=== PATIENT | male | born 1950 | race Caucasian/White ===

== ENCOUNTER 2022-10-02 13:31 | Outpatient (AMB) | payer OTHER, SELFPAY ==
[2022-10-02 13:34] VITALS: BP 130/72; PULSE 81; TEMP 36.3; O2SAT 97; BMI 42.3
--- NOTE | 2022-10-02 13:34 | MHC.PC.OV ---
Vital Signs 10/02/22 13:34 Height 5 ft 7 in Weight 270 lb BMI 42.3 BP 130/72 Blood Pressure Location Lt brachial Position Sitting Pulse 81 Pulse Source Pulse Oximeter Temp 97.4 F Temp Source Oral Pulse Oximetry (%) 97 Intake Visit Reasons: Sore throat Intake Note: Patient is here with stomach acid discomfort in esophagus and chest. Allergies No Known Allergies Allergy (Verified 10/02/22 13:41) Tobacco use date assessed: 10/02/22 Fall risk assessment: No Falls in past year Last assessed Fall Risk: 10/02/22 Dental Screening Dental Screen Date: 10/02/22 Did you have a dental visit in the last 12 months?: Yes Did you have a dental problem in the last 6 months where you did not have access to dental care?: No Was dental information given to patient?: No HPI Sore throat HPI Details Pt presents today with complaints of chest discomfort. He reports chest discomfort which he describes as a stomach acid discomfort in his esophagus and chest. He denies any shortness of breath/dizziness associated with the chest discomfort. He reports symptoms x3 weeks. He reports he has been taking omeprazole 20mg daily. He reports when he takes tums it does not improve his symptoms. [facility] Medical History (Updated 10/02/22 @ 14:14 by Dino Marinelli) Arthritis Back disorder Diabetes Eczema GERD (gastroesophageal reflux disease) Neuropathy Osteoporosis Sinusitis Social History Housing: House Patient Tobacco Use Status: Never used Tobacco e-Cigarette/Vaping Use: Never Used service: Yes Current occupational status: retired Cognitive needs: No Hearing needs: No Vision needs: Yes Questionnaire PHQ-9 Over the last 2 weeks, how often have you been bothered by any of the following problems? 1. Little interest or pleasure in doing things: not at all 2. Feeling down, depressed, or hopeless: not at all 3. Trouble falling or staying asleep, or sleeping too much: not at all 4. Feeling tired or having little energy: not at all 5. Poor appetite or overeating: not at all 6. Feeling bad about yourself - or that you are a failure or have let yourself or your family down: not at all 7. Trouble concentrating on things, such as reading the newspaper or watching television: not at all 8. Moving or speaking so slowly that other people could have noticed. Or the opposite - being so fidgety or restless that you have been moving around a lot more than usual: not at all 9. Thoughts that you would be better off or of hurting yourself in some way: not at all Total score: 0 Source: Developed by Drs. Tariq Casey, Annika Cabral, Jigar Hill and colleagues, with an educational alfonso from [employer]. Thrive Questionnaire I am a: Patient What is your living situation today?: I have a steady place to live Within the past 12 months, did the food you bought not last and you didn't have the money to get more?: Never true Within the past 12 months, did you worry whether your food would run out before you got money to buy more?: Never true Do you have trouble paying for medicines?: No Do you have trouble getting transportation to medical appointments?: No Do you have trouble paying your heating and electricity bill?: No Do you have trouble taking care of your child, family member or friend?: No Do you have trouble with day-to-day activities such as bathing, preparing meals, shopping, managing finances, etc.?: No Are you currently unemployed and looking for a job?: No Are you interested in more education?: Yes AUDIT C Alcohol Use Questionnaire (AUDIT-C) 1. How often do you have a drink containing alcohol?: Monthly or less 2. How many drinks containing alcohol do you have on a typical day when you are drinking?: 1 or 2 3. How often do you have six or more drinks on one occasion?: Never Total Score: 1 PATIENCE-7 AMB Questionnaire PATIENCE-7 Date PATIENCE - 7 assessed: 05/21/22 Feeling nervous, anxious, or on edge: 0 = Not at all Not being able to stop or control worryin = Not at all Worrying too much about different things: 0 = Not at all Trouble relaxin = Not at all Being so restless that it is hard to sit still: 0 = Not at all Becoming easily annoyed or irritable: 0 = Not at all Feeling afraid as if something awful might happen: 0 = Not at all Total PATIENCE-7 score (0-4 normal; 5-9 mild; 10-14 moderate; 15-21 severe): 0 Source: Developed by Drs. Tariq Casey, Annika Cabral, Jigar Hill and colleagues, with an educational alfonso from [employer]. Review of Systems Const Denies chills, Denies fatigue, Denies fever(s), Denies headache(s) and Denies weakness ENT Denies dizziness and Denies headache(s) Card Denies chest pain, Denies lightheadedness, Denies dyspnea and Denies other (Palpitations) Resp Denies cough, Denies dyspnea, Denies wheezing and Denies other ( shortness of breath) Musc Denies numbness and Denies tingling Neuro Denies dizziness, Denies headache(s), Denies numbness, Denies tingling, Denies paresthesias and Denies weakness Psych Denies anxiety and Denies depression Endo Denies fatigue Aller/Immun Denies wheezing Physical exam (Primary Care) Vital Signs: Last Vital Signs Temp 97.4 F 10/02/22 13:34 Pulse 81 10/02/22 13:34 BP 130/72 10/02/22 13:34 Pulse Ox 97 10/02/22 13:34 BMI result Body Mass Index 42.3 Tobacco/Smoking Status: Tobacco use Status Tobacco use date assessed 10/02/22 10/02/22 13:45 Patient Tobacco Use Status Never used Tobacco 10/02/22 13:45 e-Cigarette/Vaping Use Never Used 10/02/22 13:45 PHQ-9: PHQ-9 Score PHQ-9: Total score 0 10/04/22 20:58 Const General: no acute distress and well developed Nutritional Appearance: well nourished Orientation/consciousness: patient oriented x3 [facility] Head: Yes normocephalic and Yes atraumatic Eyes General: appearance normal, both eyes and all related structures Pupils: Equal, round and reactive pupils present EOM: EOMs intact bilaterally Resp Effort & Inspection: normal respiratory effort Auscultation: clear to auscultation bilaterally Cardio Rate: regular rate Rhythm: regular rhythm Heart sounds: S1 normal heart sound present, S2 normal heart sound present, no gallops, no murmurs and no rubs Neuro General: patient oriented x3 and gait normal Cranial nerves: Yes Equal, round and reactive pupils present Psych Affect: normal affect Assessment and Plan Assessment & Plan (1) Substernal chest pain: Code(s): R07.2 - Precordial pain Plan: EKG showed normal sinus rhythm, normal axis, right bundle branch block. Some nonspecific ST changes. Patient does not want to go to the ED for workup. He will get labs including troponin level and chest x-ray, stat today. Will call him with the results No prior EKG to compare to. He denies knowing of any right bundle-branch block in the past but does say that his EKG has not been perfectly normal in the past. Denies coronary artery disease but he does have risk factors such as diabetes. (2) GERD (gastroesophageal reflux disease): Code(s): K21.9 - Gastro-esophageal reflux disease without esophagitis Plan: Increase omeprazole to 40 mg daily and I will give him some sucralfate Close follow-up; he will return next week (3) Substernal chest pain: Code(s): R07.2 - Precordial pain Plan: Patient does not want to go to the ED for this and many of his symptoms are more consistent with esophageal spasm or GERD but EKG is not normal and I do not have a prior to compare to. He will get chest x-ray and labs drawn today. If troponin is negative can look for other causes. Orders: Orders Comprehensive Met. Panel 10/02/22 R07.2 - Precordial pain Complete Blood Count Auto Diff 10/02/22 R07.2 - Precordial pain, Z00.00 - Encounter for general adult medical examination without abnormal findings Troponin-I High Sensitivity 10/02/22 R07.2 - Precordial pain XR chest 2V 10/02/22 R07.2 - Precordial pain AMB EKG-In Office 10/02/22 R07.2 - Precordial pain Medications: New sucralfate 1 g PO BID 6 tabs 0RF 3 days Changed From omeprazole 20 mg PO DAILY 90 days 90 caps 3RF To omeprazole 40 mg (2 x 20 mg) PO DAILY 180 caps 3RF 90 days Coding Level of Care Code Est Pt Level 4 (35561) Diagnoses Substernal chest pain R07.2 GERD (gastroesophageal reflux disease) K21.9
== END 2022-10-02 15:08 | disposition home or self-care (01) ==
PROVIDERS: PCP Family Medicine; Visit Provider Family Medicine
DX: R07.2 Precordial pain (principal); K21.9 Gastro-esophageal reflux disease without esophagitis
CPT/HCPCS: 99214

== ENCOUNTER 2022-10-02 15:32 | Outpatient (REF) | payer OTHER, SELFPAY ==
--- NOTE | ~2022-10-02 | XR_ITS ---
EXAMINATION: XR CHEST CLINICAL INFORMATION: Precordial pain. COMPARISON: None available. TECHNIQUE: 2 views of the chest were obtained. FINDINGS: No significant abnormality is noted involving the heart, lungs, mediastinum, bony thorax or soft tissues. XR/XR chest 2V IMPRESSION: No acute cardiopulmonary process.
[2022-10-02 15:50] LABS: MANUAL DIFF FLAG NO
[2022-10-02 17:50] LABS: Basophils Absolute Auto 0.1 X10*3/uL (0.0-0.2); Basophils Percent Auto 0.7 % (0-2); Eosinophils Absolute Auto 0.1 X10*3/uL (0.0-0.4); Eosinophils Percent Auto 0.7 % (0-4); Hematocrit 45.2 % (42.0-52.0); Imm Gran Abs Auto 0.04 X10*3/uL (0.00-0.03); Imm Gran Pct Auto 0.3 % (0.0-0.4); Lymphocytes Absolute Auto 2.3 X10*3/uL (1.2-4.9); Lymphocytes Percent Auto 19.7 % (20-40); Mean Corpuscular Hemoglobin 26.2 pg (27.0-33.0); Mean Corpuscular Volume 84.6 fL (80.0-98.0); Mean Platelet Volume 11.5 fL (9.4-12.4); Monocytes Absolute Auto 1.1 X10*3/uL (0.1-1.2); Monocytes Percent Auto 8.9 % (2-11); Neutrophils Absolute Auto 8.2 x10*3/uL (2.0-8.3); Neutrophils Percent Auto 69.7 % (45-73); Platelet Count 254 X10*3/uL (160-400); Red Blood Count 5.34 X10*6/uL (4.60-5.80); Red Cell Distribution Width 14.6 % (11.0-16.0); White Blood Count 11.8 X10*3/uL (4.8-10.8)
[2022-10-02 18:16] LABS: Alanine Aminotransferase 19 U/L (0-40); Albumin Level 4.3 g/dL (3.5-5.0); Alkaline Phosphatase 89 U/L (39-117); Anion Gap 17 (12-20); Aspartate Amino Transferase 17 U/L (5-37); Bilirubin Total 0.3 mg/dL (0.0-1.0); Blood Urea Nitrogen 16 mg/dL (9-16); Calcium 9.8 mg/dL (8.4-10.2); Carbon Dioxide 25 mmol/L (22-29); Chloride 105 mmol/L (96-108); Estimated Glomerular Filt Rate > 60; Glucose Random 75 mg/dL (60-115); Potassium 4.1 mmol/L (3.3-5.1); Sodium 143 mmol/L (135-145); Total Protein 7.6 g/dL (6.5-8.0)
[2022-10-02 18:18] LABS: Troponin-I High Sensitivity < 2.7 ng/L (<3.5-35.0)
== END 2022-10-02 15:33 | disposition home or self-care (01) ==
LOC: HO.LAB 15:32
PROVIDERS: PCP Family Medicine; Visit Provider Family Medicine
DX: Z00.00 Encounter for general adult medical examination without abnormal findings (principal); R07.2 Precordial pain
CPT/HCPCS: 36415; 71046; 80053; 84484; 85025

== ENCOUNTER 2022-10-08 09:27 | Outpatient (AMB) | payer OTHER, SELFPAY ==
--- NOTE | 2022-10-08 09:31 | A.OFFPC_ITS ---
Vital Signs 10/08/22 09:33 Height 5 ft 7 in Weight 268 lb BMI 42.0 BP 138/76 Blood Pressure Location Lt brachial Position Sitting Pulse 75 Pulse Source Pulse Oximeter Pulse Oximetry (%) 97 Oxygen Delivery Method Room Air Intake Visit Reasons: f/u chest pain Intake Note: Patient is here to follow up on chest pain, he states he is feeling so-so today. Allergies No Known Allergies Allergy (Verified 10/08/22 09:35) Tobacco use date assessed: 10/08/22 Fall risk assessment: No Falls in past year Last assessed Fall Risk: 10/08/22 Dental Screening Dental Screen Date: 10/08/22 Did you have a dental visit in the last 12 months?: Yes Did you have a dental problem in the last 6 months where you did not have access to dental care?: No Was dental information given to patient?: No [facility] Medical History Arthritis Back disorder Diabetes Eczema GERD (gastroesophageal reflux disease) Neuropathy Osteoporosis Sinusitis Social History Housing: House Patient Tobacco Use Status: Never used Tobacco e-Cigarette/Vaping Use: Never Used service: Yes Current occupational status: retired Cognitive needs: No Hearing needs: No Vision needs: Yes Questionnaire PATIENCE-7 AMB Questionnaire PATIENCE-7 Date PATIENCE - 7 assessed: 05/21/22 Source: Developed by Drs. Tariq Casey, Annika Cabral, Jigar Hill and colleagues, with an educational alfonso from [employer]. Physical exam (Primary Care) Vital Signs: Last Vital Signs Pulse 75 10/08/22 09:33 BP 138/76 10/08/22 09:33 Pulse Ox 97 10/08/22 09:33 Oxygen Delivery Method Room Air 10/08/22 09:33 BMI result Body Mass Index 42.0 Tobacco/Smoking Status: Tobacco use Status Tobacco use date assessed 10/08/22 10/08/22 09:39 Patient Tobacco Use Status Never used Tobacco 10/08/22 09:33 e-Cigarette/Vaping Use Never Used 10/08/22 09:33 Assessment and Plan Assessment & Plan (1) Chest discomfort: Code(s): R07.89 - Other chest pain Plan: Focal chest discomfort which does not radiate and is not so she had with exertion. He did have an EKG with a right bundle branch block but no signs of ACS and his troponin level was negative Possibly some improvements with PPI increase dose and sucralfate though patient still has symptom. Also not associated with deep inspiration and his chest x-ray was negative. Patient also notes some dizziness but this does not seem to be associated with the chest discomfort. Most likely his focal chest discomfort is related to his GI tract such as an esophageal spasm or erosion. Will refer him to Gastroenterology for further evaluation Nevertheless, will refer him to Cardiology as well. He has had a associate account executive in the past and prior records from 2010 show history of atrial flutter and pericardial effusion though no evidence of either of these currently. (2) GERD (gastroesophageal reflux disease): Code(s): K21.9 - Gastro-esophageal reflux disease without esophagitis Plan: For now, continue omeprazole at 40 mg daily Referred to GI (3) Dizziness: Code(s): R42 - Dizziness and giddiness Plan: As above, patient notes some dizziness which does not seem to be related to chest discomfort and is likely related to vertigo Nevertheless, given above symptoms, I am referring him to Cardiology Orders: Referrals Cardiology Referral R07.89 - Other chest pain, R42 - Dizziness and giddiness Gastroenterology Referral K21.9 - Gastro-esophageal reflux disease without esophagitis, R07.89 - Other chest pain Coding Level of Care Code Est Pt Level 4 (40735) Diagnoses Chest discomfort R07.89 GERD (gastroesophageal reflux disease) K21.9 Dizziness R42
[2022-10-08 09:33] VITALS: BP 138/76; PULSE 75; O2SAT 97; BMI 42.0
== END 2022-10-08 10:14 | disposition home or self-care (01) ==
PROVIDERS: PCP Family Medicine; Visit Provider Family Medicine
DX: R07.89 Other chest pain (principal); K21.9 Gastro-esophageal reflux disease without esophagitis; R42 Dizziness and giddiness
CPT/HCPCS: 99214

== ENCOUNTER 2022-10-21 13:24 | Outpatient (AMB) | payer OTHER, SELFPAY ==
[2022-10-21 13:27] VITALS: BP 140/75; PULSE 74; O2SAT 96; BMI 41.3
--- NOTE | 2022-10-21 13:27 | A.OFFVIS_ITS ---
Intake Vital Signs 10/21/22 13:27 Height 5 ft 7 in Weight 263 lb 10.766 oz BMI 41.3 BP 140/75 H Blood Pressure Location Lt brachial Position Sitting Pulse 74 Pulse Source Pulse Oximeter Pulse Oximetry (%) 96 Oxygen Delivery Method Room Air Intake Visit Reasons: Gastro-esophageal reflux disease Intake Note: Pt presents to the office today for Gastro-esophageal reflux disease. Pt states he hasnt had any issues with GERD except he feels like he has a lump in his throat/chest area that is painful. He states today he has less pain but it is still there. Pt denies any NVD. Allergies No Known Allergies Allergy (Verified 10/21/22 13:33) HPI HPI Comments History of Present Illness Details This is a 72 y.o M with PMH of who is here for chest discomfort. Pt reports that sx started in August which he describes as a pressure or lump like sensation in his upper chest that had sudden onset one day. Characterizes it as pressure which is present all the time. Does not think it gets worse with exertion. Has been avoiding certain foods such as fatty or spicy foods and thinks that may have made some difference. Not sure if omeprazole is making it better despite increase in dose to 40. Not associated with N,V,D. Does notice some shortness of breath on exertion and has also been experiencing lightheadedness and dizziness. EKG done in PCP office (not available to review) reportedly with a new RBBB. [facility] Medical History Arthritis Back disorder Diabetes Eczema GERD (gastroesophageal reflux disease) Neuropathy Osteoporosis Sinusitis Surgical History History of tonsillectomy Social History Housing: House Patient Tobacco Use Status: Never used Tobacco e-Cigarette/Vaping Use: Never Used service: Yes Current occupational status: retired Cognitive needs: No Hearing needs: No Vision needs: Yes Physical Exam Vital Signs: Last Vital Signs Pulse 74 10/21/22 13:27 BP 140/75 H 10/21/22 13:27 Pulse Ox 96 10/21/22 13:27 Oxygen Delivery Method Room Air 10/21/22 13:27 BMI result Body Mass Index 41.3 Assessment & Plan Assessment & Plan (1) Substernal chest pain: Code(s): R07.2 - Precordial pain (2) Globus sensation: Code(s): R09.89 - Other specified symptoms and signs involving the circulatory and respiratory systems Plan Features not entirely convincing for esophageal or gastrointestinal origin of chest discomfort michael given location and other assoc sx such as SOB and lightheadedness. Do not sound completely anginal either. However certainly should undergo eval and already scheduled with Cardiology. Will try to expedite this and also obtain an echocardiogram. From GI standpoint, possible DDx include esophageal dysmotilty, diverticulum, globus sensation, mass. Barium swallow ordered. Holding off EGD until cardiology evaluation. Cont omperazole 40 in the meantime. Follow up in 4 weeks Orders: Orders [place] barium swallow Today R09.89 - Other specified symptoms and signs involving the circulatory and respiratory systems CA echo transthoracic complete Today R07.2 - Precordial pain Coding Level of Care Code New Pt Level 4 (37305) Diagnoses Substernal chest pain R07.2 Globus sensation R09.89
== END 2022-10-21 14:21 | disposition home or self-care (01) ==
PROVIDERS: PCP Family Medicine; Visit Provider Internal Medicine
DX: R07.2 Precordial pain (principal); R09.89 Other specified symptoms and signs involving the circulatory and respiratory systems
CPT/HCPCS: 99204

== ENCOUNTER → 2022-10-21 13:24 | Outpatient (BNVA) | payer OTHER, SELFPAY | PROVIDERS: PCP Family Medicine; Visit Provider Internal Medicine ==

== ENCOUNTER 2022-10-26 12:18 | Outpatient (AMB) | payer OTHER, SELFPAY ==
--- NOTE | 2022-10-26 12:33 | A.OFFVIS_ITS ---
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 He is a 72-year-old male with prior history of diabetes but diet controlled for many years as well as neuropathy, he says diagnosed in 2011 currently not on medical therapy for the same. He thinks this is related to diabetes. Five for about 6 weeks he has had a constant retrosternal lump in place. He said this is not clearly exertion related. Denies any other symptoms. However he does complain of exertional shortness of breath and says they can walk for about 5 minutes on the treadmill and has to stop. However he thinks this is related to his weight and sedentary lifestyle. He recently started exercising. He also has had acid recess for many years and is currently on omeprazole and was seen through your office and currently undergoing GI workup as well. He denies any orthopnea, PND, leg edema. Denies any prolonged palpitations or syncope. He also complains that when he wakes up in the morning he gets lightheaded when he changes and gets upright. He occasional also gets symptoms when he gets up suddenly. He has not had any syncopal episodes. He drinks about 30 oz of water a day [facility] Medical History Arthritis Back disorder Diabetes Eczema GERD (gastroesophageal reflux disease) Neuropathy Osteoporosis Sinusitis Surgical History History of tonsillectomy Social History Housing: House Alcohol intake: current Alcohol intake frequency: a few times a week Patient Tobacco Use Status: Never used Tobacco e-Cigarette/Vaping Use: Never Used service: Yes Current occupational status: retired Cognitive needs: No Hearing needs: No Vision needs: Yes Review of Systems Const Denies chills, Denies daytime sleepiness, Denies fatigue, Denies fever(s), Denies frequent falls, Denies night sweats, Denies snoring, Denies weakness, Denies weight gain and Denies weight loss Eyes Denies loss of vision ENT Denies dizziness and Denies hearing loss Card Denies chest pain, Denies chest pain with activity, Denies syncope, Denies rapid heart rate, Denies edema, Denies claudication, Denies leg edema, Denies lightheadedness, Denies palpitations, Denies dyspnea, Denies dyspnea on exertion and Denies orthopnea Resp Denies cough, Denies excessive phlegm production, Denies dyspnea, Denies dyspnea on exertion, Denies snoring and Denies wheezing GI Denies abdominal pain, Denies hematochezia, Denies change in bowel habits, Denies change in stool character, Denies heartburn, Denies nausea and Denies vomiting Denies hematuria, Denies dysuria and Denies urinary frequency Musc Denies arthralgias, Denies muscle weakness, Denies numbness and Denies tingling Skin/Breast Denies nail changes and Denies rash Neuro Denies Abnormal speech present, Denies dizziness, Denies syncope, Denies frequent falls, Denies loss of vision, Denies memory loss, Denies numbness, Denies tingling and Denies weakness Psych Denies depression and Denies memory loss Endo Denies fatigue and Denies palpitations Aller/Immun Denies wheezing Physical Exam Vital Signs: Last Vital Signs Pulse 71 10/26/22 12:34 BP 132/80 10/26/22 12:34 BMI result Body Mass Index 41.1 Const General: cooperative, comfortable, no acute distress, alert and awake Nutritional Appearance: obese morbidly obese Orientation/consciousness: patient oriented x3 Limitations: no limitations HEENT Head: Yes normocephalic and Yes atraumatic Neck Neck: Yes trachea midline, Yes supple and Yes no JVD Resp Effort & Inspection: normal respiratory effort Auscultation: clear to auscultation bilaterally Cardio Jugular venous distension: no JVD Palpation: normal PMI Rate: regular rate Rhythm: regular rhythm Heart sounds: S1 normal heart sound present, S2 normal heart sound present, no click, no gallops, no murmurs and no rubs GI Inspection: Yes obesity Auscultation: normal bowel sounds Skin General skin exam: no rashes or lesions noted Neuro General: patient oriented x3 and no focal motor deficits Speech: No Abnormal speech present Extrem General: Yes no clubbing, cyanosis or edema Psych Appearance: grossly normal Assessment & Plan Assessment & Plan (1) Exertional dyspnea: Code(s): R06.09 - Other forms of dyspnea Plan: Patient with exertional shortness of breath and given his age and risk factor of diabetes, obstructive coronary artery disease needs to be ruled out. It is possible this could be related to his weight and deconditioning although obstructive coronary artery disease is going to affect his prognosis. Also suggest an echocardiogram is already requested. If these tests are within acceptable limits, in the long run he needs to pursue aggressive weight loss and regular physical activity. His symptoms of retrosternal chest discomfort a very atypical for myocardial ischemia given constant nature of discomfort for many weeks and no relation to exertion. This probably related to GI cause. Being investigated by GI team. (2) Orthostatic lightheadedness: Code(s): R42 - Dizziness and giddiness Plan: Orthostatic lightheadedness in this elderly gentleman with longstanding history of peripheral neuropathy as well as diabetes. Likelihood of autonomic neuropathy is high. We discussed the nature of autonomic neuropathy. Some of his GI symptoms are probably related to it. Management of orthostatic lightheadedness were discussed in details. Initially advised to maintain increase fluid intake to up to 60 oz a day. We discussed about orthostatic precautions. His symptoms worsen, may use alternative therapy such as midodrine and/or fludrocortisone if the blood pressure allows. Consider referral to Neuro logy for his peripheral neuropathy. Will follow up in the clinic in 6 weeks time, sooner p.r.n.. Thank you for allowing me to partake in his care Coding Level of Care Code New Pt Level 4 (38401) Diagnoses Exertional dyspnea R06.09 Orthostatic lightheadedness R42
[2022-10-26 12:34] VITALS: BP 132/80; PULSE 71; BMI 41.1
== END 2022-10-26 13:07 | disposition home or self-care (01) ==
PROVIDERS: PCP Family Medicine; Referring Provider Internal Medicine; Visit Provider Internal Medicine Cardiovascular Disease
DX: R06.09 Other forms of dyspnea (principal); R42 Dizziness and giddiness
CPT/HCPCS: 99204

== ENCOUNTER → 2022-10-26 12:18 | Outpatient (BNVA) | payer OTHER, SELFPAY | PROVIDERS: PCP Family Medicine; Referring Provider Internal Medicine; Visit Provider Internal Medicine Cardiovascular Disease ==

== ENCOUNTER → 2022-11-20 09:46 | Outpatient (REF) | payer OTHER, SELFPAY ==
--- NOTE | 2022-11-20 09:50 | CA_ITS ---
Transthoracic Echocardiogram Patient (Last, First, Middle): Farhad Mayes, Gender: Male Date of : 1950 Age: 72 Procedure Date: 11/20/2022 Procedure Type: Transthoracic Echocardiogram Location: OP Height: 170.18 cm Weight: 117.94 kg BSA: 2.26 m2 Heart Rate: bpm BP: 130 / 84 mmHg Sole Seamer: TO Referring MD: Georgina Corrigan MD Symptoms: R07.2 - Precordial pain Study Quality: Fair/Contrast Conclusions: - Normal left ventricular size, thickness, systolic function, and wall motion. The visually estimated ejection fraction is between 55-60%. Diastolic function is normal for age. - Normal right ventricular cavity size and systolic function. - There is mild dilatation of the ascending aorta measuring 3.70 cm. Findings Procedure Information Contrast agent, definity, is being given per protocol without apparent complications. Left Ventricle Normal left ventricular size, thickness, systolic function, and wall motion. The visually estimated ejection fraction is between 55-60%. Diastolic function is normal for age. Right Ventricle Normal right ventricular cavity size and systolic function. Atria The left atrium is normal in size. The right atrium is normal in size. Aortic Valve Normal aortic valve structure and function. There is no aortic valve stenosis. There is no aortic valve regurgitation. Mitral Valve The mitral valve appears normal. There is no mitral valve regurgitation. There is no mitral valve stenosis. Pulmonic Valve Normal pulmonic valve structure and function. There is no pulmonic valve regurgitation. Tricuspid Valve Normal tricuspid valve structure and function. Tricuspid regurgitation envelope is inadequate for calculation of right ventricular systolic pressure. Normal right atrial pressure. Great Vessels There is mild dilatation of the ascending aorta measuring 3.70 cm. The visualized portions of the pulmonary artery and branches are normal. Venous The inferior vena cava is normal in size and collapses greater than 50% with inspiration. Pericardium/Pleural There is no evidence of pericardial effusion. Prior Study Comparison No prior study available for comparison. Measurements 2D Linear Measurements IVSd: 0.92 0.6-0.9/0.6-1.0 cm LVIDd: 4.81 3.9-5.3/4.2-5.9 cm LVIDd Index: 2.13 2.4-3.2/2.2-3.1 cm/m2 LVIDs: 2.82 2.0-3.6 cm LVPWd: 0.77 0.7-1.1 cm LA Diam: 3.60 2.7-3.8/3.0-4.0 cm LAIDs Index: 1.59 1.5-2.3 cm/m2 LV Mass: 169.35 67-162/88-224 g LV Mass Index: 74.93 43-95/49-115 g/m2 LVOT Diam: 2.00 3.0+(-)1.3 cm 2D Systolic Function EF 4C: 60.30 >55% EF 2C: 58.60 >55% EF BiP: 59.50 >55% Mitral Valve MV VTI: 0.28 MV Pk Lee: 1.00 MV Mn Lee: 0.64 MV Pk Grad: 4.00 MV Mn Grad: 2.00 MV Pk E: 0.73 MV PK A: 0.66 MV Decel Time: 275.00 E/A: 1.10 E'Lateral: 12.20 E'Medial: 8.05 E/E' Med: 9.10 E/E' Lat: 6.00 PHT: 81.00 MVA PHT: 2.72 MVA Continuity: 2.59 Decel [place]: 2.66 Aortic Valve AoV Pk Lee: 1.38 AoV Mn Lee: 0.85 AoV VTI: 0.31 AoV Pk Grad: 8.00 Aov Mn Grad: 3.00 TOMMY Cont.VTI: 2.33 LVOT LVOT Pk Lee: 1.05 LVOT Mn Lee: 0.66 LVOT VTI: 0.23 LVOT Pk Grad: 4.00 LVOT Mn Grad: 2.00 LVOT Diam: 2.00 LVOT Area: 3.14 Diastolic Function MV Pk E: 0.73 MV Pk A: 0.66 E/A: 1.10 E'Medial: 8.05 E/E' Med: 9.10 E' Laterial: 12.20 E/E' Lat: 6.00 Right Ventricle TAPSE (mm): 22.20 TVS' Lee: 10.00 Tricuspid Valve RA Press: 3.00 Great Vessels Aorta Sinus of Valsalva: 3.33 2.0-3.[address] [place]: 2.54 1.7-3.4 cm Ao Asc: 3.70 2.1-3.4 cm Updated in Other Vendor System with Status of Final Nghia Fragoso MD electronically signed on 11/23/2022 8:57:36 AM with status of Final
== END ==
LOC: HO.CARD 09:46
PROVIDERS: PCP Family Medicine; Visit Provider Internal Medicine
DX: R07.2 Precordial pain (principal)
CPT/HCPCS: 93306; Q9957

== ENCOUNTER → 2022-11-20 09:50 | Outpatient (BNV) | payer OTHER, SELFPAY | PROVIDERS: PCP Family Medicine; Visit Provider Internal Medicine Cardiovascular Disease | DX: R07.2 Precordial pain (principal); I77.810 Thoracic aortic ectasia | CPT/HCPCS: 93306 ==

== ENCOUNTER 2022-12-08 08:55 | Outpatient (AMB) | payer OTHER, SELFPAY ==
--- NOTE | 2022-12-08 09:10 | A.OFFVIS_ITS ---
Intake Vital Signs 12/08/22 09:12 Height 5 ft 7 in Weight 253 lb 8.505 oz BMI 39.7 BP 161/88 H Blood Pressure Location Lt brachial Position Sitting Pulse 69 Intake Visit Reasons: 6 week follow up Intake Note: Farhad presents in the office as a 6 week follow up. CC: He states that he was originally having esophagus issues but he states that a week or [address] Corrigan it had gone away. He is also anxious about his test results. [employer] Required: No Allergies Seasonal Allergies Allergy (Intermediate, Verified 12/09/22 08:51) Itchy Eyes HPI HPI Comments History of Present Illness Details This is a 72 y.o M with PMH of who is here for follow up. 10/21/22: Pt reports that sx started in August which he describes as a pressure or lump like sensation in his upper chest that had sudden onset one day. Characterizes it as pressure which is present all the time. Does not think it gets worse with exertion. Has been avoiding certain foods such as fatty or spicy foods and thinks that may have made some difference. Not sure if omeprazole is making it better despite increase in dose to 40. Not associated with N,V,D. Does notice some shortness of breath on exertion and has also been experiencing lightheadedness and dizziness. EKG done in PCP office (not available to review) reportedly with a new RBBB. 12/08/22: Seen by Cardiology. Echo reviewed. Also planned for nuc stress test. Today, pt reports complete resolution of chest pain since he was last seen. Hes unsure what helped thinks may be dietary changes and/or weight loss of around 15lbs. Also canceled his barium swallow as did not think he needed it. He is also due for CRC screening. He is unsure when his last colo was. [facility] Medical History (Updated 12/09/22 @ 10:13 by Dino Marinelli) Eczema Neuropathy GERD (gastroesophageal reflux disease) Back disorder Osteoporosis Arthritis Diabetes Sinusitis Surgical History History of tonsillectomy Social History Housing: House Alcohol intake: current Alcohol intake frequency: a few times a week Patient Tobacco Use Status: Never used Tobacco e-Cigarette/Vaping Use: Never Used service: Yes Current occupational status: retired Cognitive needs: No Hearing needs: No Vision needs: Yes Review of Systems Const All systems reviewed & are unremarkable except as noted in HPI and below Physical Exam Vital Signs: Last Vital Signs Pulse 69 12/08/22 09:12 BP 161/88 H 12/08/22 09:12 BMI result Body Mass Index 39.7 Gen appear: NAD HEENT: nonicteric, no cervical lymphadenopathy Chest: CTA CVS: Regular S1/S2 Abd: soft, nontender, nondistended, bowel sounds + Ext: no peripheral edema Neuro: A/Ox3, noted to move all extremities spontaneously Psych: interacting appropriately Assessment & Plan Assessment & Plan (1) Globus sensation: Code(s): R09.89 - Other specified symptoms and signs involving the circulatory and respiratory systems (2) Substernal chest pain: Code(s): R07.2 - Precordial pain (3) Screening for colon cancer: Code(s): Z12.11 - Encounter for screening for malignant neoplasm of colon Plan 1. Globus sensation/chest pain: Self limiting. Pt unsure what made it better as hes not convinced taking PPI was helpful. Believes could just have been making dietary changes. Completing cardiac work up as above. Plan: - Discussed with the pt that if have resolved, no indication for EGD at this time however if they do recur to call us to set up an EGD (can potentially be done at the same time as screening colo) 2. CRC screening: Will be set up for screening colo on an elective basis once cardiac work up is completed. Split PEG prep instructions were reviewed and handout provided. Follow after scope(s) as needed Medications: New peg 3350-electrolytes 236-22.74-6.74 -5.86 gram (Golytely) as per split prep instructions, until fecal effluent is clear 240 mL PO Q10M 4,000 mL 0RF colonoscopy Coding Level of Care Code Est Pt Level 4 (16969) Diagnoses Globus sensation R09.89 Substernal chest pain R07.2 Screening for colon cancer Z12.11
[2022-12-08 09:12] VITALS: BP 161/88; PULSE 69; BMI 39.7
== END 2022-12-08 09:47 | disposition home or self-care (01) ==
PROVIDERS: PCP Family Medicine; Visit Provider Internal Medicine
DX: R09.89 Other specified symptoms and signs involving the circulatory and respiratory systems (principal); R07.2 Precordial pain; Z12.11 Encounter for screening for malignant neoplasm of colon
CPT/HCPCS: 99214

== ENCOUNTER → 2022-12-08 08:55 | Outpatient (BNVA) | payer OTHER, SELFPAY | PROVIDERS: PCP Family Medicine; Visit Provider Internal Medicine ==

== ENCOUNTER 2022-12-09 08:33 | Outpatient (AMB) | payer OTHER, SELFPAY ==
[2022-12-09 08:41] VITALS: BP 130/70; PULSE 72; RESP 13; TEMP 36.3; O2SAT 99; BMI 40.1
--- NOTE | 2022-12-09 08:41 | MHC.PC.OV ---
Vital Signs 12/09/22 08:41 Height 5 ft 7 in Weight 256 lb 2 oz BMI 40.1 BP 130/70 Blood Pressure Location Lt brachial Position Sitting Respiration 13 Pulse 72 Pulse Source Pulse Oximeter Temp 97.3 F Temp Source Temporal Artery Scan Pulse Oximetry (%) 99 Oxygen Delivery Method Room Air Intake Visit Reasons: CPE with f/u labs and health maint. Allergies Seasonal Allergies Allergy (Intermediate, Verified 12/09/22 08:51) Itchy Eyes Tobacco use date assessed: 10/08/22 Fall risk assessment: No Falls in past year Last assessed Fall Risk: 12/09/22 Dental Screening Dental Screen Date: 12/09/22 Did you have a dental visit in the last 12 months?: No Did you have a dental problem in the last 6 months where you did not have access to dental care?: No Was dental information given to patient?: Patient has dentist HPI CPE with f/u labs and health maint. HPI Details 72 y/o male presents for a CPE with f/u labs and health maintenance. A1c today 12/09/22 6.3% - pre-diabetes range. Had seen Dr. Saeed Cardiology for chest pain. They report symptoms of chest discomfort atypical for myocardial ischemia and most likely related to GI cause. Pt reports Dr. Saeed had given him a clean bill of health. Pt reports ongoing issues with neuropathy/leg cramps. Pt requests something for his anxiety for his flight. HPI Comments History of Present Illness Details Documentation assistance for Rogelio Marin MD, was provided by Dino Marinelli,? Fabrication [employer]der on 12/09/2022 10:02 AM FELIPA. I, Dr. Marin, have read, observed, and verified documentation. [facility] Medical History Eczema Neuropathy GERD (gastroesophageal reflux disease) Back disorder Osteoporosis Arthritis Diabetes Sinusitis Surgical History History of tonsillectomy Social History Housing: House Alcohol intake: current Alcohol intake frequency: a few times a week Patient Tobacco Use Status: Never used Tobacco e-Cigarette/Vaping Use: Never Used service: Yes Current occupational status: retired Cognitive needs: No Hearing needs: No Vision needs: Yes Questionnaire PATIENCE-7 AMB Questionnaire PATIENCE-7 Date PATIENCE - 7 assessed: 05/21/22 Source: Developed by Drs. Tariq Casey, Annika Cabral, Jigar Hill and colleagues, with an educational alfonso from [employer]. Review of Systems Const Denies chills, Denies fatigue, Denies fever(s), Denies headache(s) and Denies weakness ENT Denies dizziness and Denies headache(s) Card Denies chest pain, Denies lightheadedness, Denies dyspnea and Denies other (Palpitations) Resp Denies cough, Denies dyspnea, Denies wheezing and Denies other ( shortness of breath) Musc Denies numbness and Denies tingling Neuro Denies dizziness, Denies headache(s), Denies numbness, Denies tingling, Denies paresthesias and Denies weakness Psych Denies anxiety and Denies depression Endo Denies fatigue Aller/Immun Denies wheezing Physical exam (Primary Care) Vital Signs: Last Vital Signs Temp 97.3 F 12/09/22 08:41 Pulse 72 12/09/22 08:41 Resp 13 12/09/22 08:41 BP 130/70 12/09/22 08:41 Pulse Ox 99 12/09/22 08:41 Oxygen Delivery Method Room Air 12/09/22 08:41 BMI result Body Mass Index 40.1 Tobacco/Smoking Status: Tobacco use Status Tobacco use date assessed 10/08/22 12/09/22 08:44 Patient Tobacco Use Status Never used Tobacco 12/09/22 08:44 e-Cigarette/Vaping Use Never Used 12/09/22 08:44 Const General: no acute distress and well developed Nutritional Appearance: well nourished Orientation/consciousness: patient oriented x3 HENMT Head: Yes normocephalic and Yes atraumatic Eyes General: appearance normal, both eyes and all related structures Pupils: Equal, round and reactive pupils present EOM: EOMs intact bilaterally Resp Effort & Inspection: normal respiratory effort Auscultation: clear to auscultation bilaterally Cardio Rate: regular rate Rhythm: regular rhythm Heart sounds: S1 normal heart sound present, S2 normal heart sound present, no gallops, no murmurs and no rubs Neuro General: patient oriented x3 and gait normal Cranial nerves: Yes Equal, round and reactive pupils present Psych Affect: normal affect Results AMB Hemoglobin A1c AMB Hemoglobin A1c 6.3 % Last Edit by Loyda Anderson MA on 12/09/22 09:18 Results Reviewed Results Reviewed: Laboratory Last Values Hgb A1c (Clinic) 6.3 % (4.0-6.0) H 12/09/22 09:17 Assessment and Plan Assessment & Plan (1) Neuropathy: Code(s): G62.9 - Polyneuropathy, unspecified Plan: Tingling/burning?in?feet?and?toes. Check?B12?level Start?B12?supplement A1c?shows?blood?sugars?are?controlled Patient?is?referred?to?neurology (2) Chest discomfort: Code(s): R07.89 - Other chest pain Plan: This?has?resolved?for?several?weeks?since?increasing?omeprazole Has?seen?cardiology?and?they?feel?his?chest?pain?is?atypical?and?more?likely?related?to?GI?issues. Continue?omeprazole?40?mg?daily.??Follow-up?with?GI (3) Lower extremity pain: Code(s): M79.606 - Pain in leg, unspecified Plan: Low?back?pain?and?lower?extremity?pain Likely?recurrent?low?back?muscle?strains with?nerve?impingements?and?sciatica Start?physical?therapy (4) GERD (gastroesophageal reflux disease): Code(s): K21.9 - Gastro-esophageal reflux disease without esophagitis Plan: As?above?continue?omeprazole (5) Screening for colon cancer: Code(s): Z12.11 - Encounter for screening for malignant neoplasm of colon Plan: Patient?will?get?colonoscopy Follow-up?with?GI (6) Low back pain with sciatica: Code(s): M54.40 - Lumbago with sciatica, unspecified side Plan: As?above Start?physical?therapy If?not?improving?will?get?imaging (7) Fear of flying: Code(s): F40.243 - Fear of flying Plan: Will?give?patient?a?short?script?for?lorazepam. Orders: Orders Vitamin B12 and Folate Today E53.8 - Deficiency of other specified B group vitamins, M79.606 - Pain in leg, unspecified Comprehensive Met. Panel Today M79.606 - Pain in leg, unspecified PT Evaluation and Treatment Today M54.40 - Lumbago with sciatica, unspecified side Medications: New mecobalamin (vitamin B12) 1,000 mcg PO DAILY 90 days 90 tabs 3RF lorazepam 0.5 mg PO BID PRN 4 tabs 0RF Fear of flying 2 days M79.606 - Pain in leg, unspecified Coding Level of Care Code Est Pt Level 4 (20471) Diagnoses Neuropathy G62.9 Chest discomfort R07.89 Lower extremity pain M79.606 GERD (gastroesophageal reflux disease) K21.9 Screening for colon cancer Z12.11 Low back pain with sciatica M54.40 Fear of flying F40.243
== END 2022-12-09 10:26 | disposition home or self-care (01) ==
PROVIDERS: Visit Provider Family Medicine
DX: G62.9 Polyneuropathy, unspecified (principal); R07.89 Other chest pain; M79.606 Pain in leg, unspecified; K21.9 Gastro-esophageal reflux disease without esophagitis; Z12.11 Encounter for screening for malignant neoplasm of colon; M54.40 Lumbago with sciatica, unspecified side; F40.243 Fear of flying
CPT/HCPCS: 83036; 99214

== ENCOUNTER 2023-01-18 09:06 | Outpatient (REF) | payer OTHER, SELFPAY ==
[2023-01-18 11:22] LABS: MANUAL DIFF FLAG NO
[2023-01-18 11:41] LABS: Basophils Absolute Auto 0.1 X10*3/uL (0.0-0.2); Basophils Percent Auto 0.8 % (0-2); Eosinophils Absolute Auto 0.1 X10*3/uL (0.0-0.4); Hematocrit 44.3 % (42.0-52.0); Hemoglobin 14.4 g/dl (14.0-18.0); Imm Gran Abs Auto 0.02 X10*3/uL (0.00-0.03); Imm Gran Pct Auto 0.3 % (0.0-0.4); Lymphocytes Absolute Auto 1.7 X10*3/uL (1.2-4.9); Lymphocytes Percent Auto 23.6 % (20-40); Mean Corpuscular HGB Conc 32.5 g/dl (31.0-36.0); Mean Corpuscular Hemoglobin 27.2 pg (27.0-33.0); Mean Corpuscular Volume 83.7 fL (80.0-98.0); Mean Platelet Volume 11.7 fL (9.4-12.4); Monocytes Absolute Auto 0.7 X10*3/uL (0.1-1.2); Monocytes Percent Auto 8.9 % (2-11); Neutrophils Absolute Auto 4.8 x10*3/uL (2.0-8.3); Neutrophils Percent Auto 65.4 % (45-73); Platelet Count 258 X10*3/uL (160-400); Red Blood Count 5.29 X10*6/uL (4.60-5.80); Red Cell Distribution Width 14.5 % (11.0-16.0); White Blood Count 7.3 X10*3/uL (4.8-10.8)
[2023-01-18 11:53] LABS: Appearance Urine Clear; Color Urine Yellow; Glucose Urine UA Negative (Negative); Leukocyte Esterase Urine Negative (Negative); Nitrite Urine Negative (Negative); PH 6.5 (5.0-9.0); Specific Gravity - Urine <= 1.005 (1.005-1.025); Urine Blood Negative (Negative); Urine Ketones Negative (Negative); Urine Protein Negative (Neg-Trace)
[2023-01-18 12:07] LABS: Creatinine Urine 22.02 mg/dL; Microalbumin Urine < 5.0 mg/L
[2023-01-18 12:11] LABS: Prostate Specific Antigen Scr 2.19 ng/mL (<0.05-4.0)
[2023-01-18 12:32] LABS: TSH reflex Free T4 0.89 uIU/mL (0.32-4.0)
[2023-01-18 12:36] LABS: Anion Gap 10 (12-20)
[2023-01-18 12:41] LABS: Alanine Aminotransferase 16 U/L (0-40); Albumin Level 4.3 g/dL (3.5-5.0); Alkaline Phosphatase 78 U/L (39-117); Aspartate Amino Transferase 20 U/L (5-37); Bilirubin Total 0.7 mg/dL (0.0-1.0); Blood Urea Nitrogen 12 mg/dL (9-16); Calcium 9.7 mg/dL (8.4-10.2); Carbon Dioxide 28 mmol/L (22-29); Chloride 104 mmol/L (96-108); Cholesterol 165 mg/dL (<200); Estimated Glomerular Filt Rate > 60; Glucose Fasting 102 mg/dL (60-99); HDL Cholesterol 40 mg/dL (>40); LDL Cholesterol Calculated 110 mg/dL (<100); Potassium 4.2 mmol/L (3.3-5.1); Sodium 138 mmol/L (135-145); Total Protein 7.6 g/dL (6.5-8.0); Triglycerides 78 mg/dL (<150)
== END 2023-01-18 09:07 | disposition home or self-care (01) ==
LOC: HO.WFDLDS 09:06
PROVIDERS: Visit Provider Family Medicine
DX: Z00.00 Encounter for general adult medical examination without abnormal findings (principal); I10 Essential (primary) hypertension; Z12.5 Encounter for screening for malignant neoplasm of prostate
CPT/HCPCS: 36415; 80053; 80061; 81003; 82043; 82570; 84153; 84443; 85025

== ENCOUNTER 2023-01-20 10:36 | Outpatient (AMB) | payer OTHER, SELFPAY ==
[2023-01-20 10:40] VITALS: BP 132/78; PULSE 81; O2SAT 98; BMI 38.8
--- NOTE | 2023-01-20 10:40 | A.OFFPC_ITS ---
Vital Signs 01/20/23 10:40 Height 5 ft 7 in Weight 248 lb BMI 38.8 BP 132/78 Blood Pressure Location Rt brachial Position Sitting Pulse 81 Pulse Source Pulse Oximeter Pulse Oximetry (%) 98 Oxygen Delivery Method Room Air Intake Visit Reasons: CPE with f/u labs and health maintenance Intake Note: Patient is here for CPE with follow up on labs and health maintenance. Allergies Seasonal Allergies Allergy (Intermediate, Verified 01/20/23 10:47) Itchy Eyes Tobacco use date assessed: 10/08/22 HPI CPE with f/u labs and health maintenance HPI Details 72 y/o male presents for a CPE with f/u labs and health maintenance. Labs were drawn 01/18/23. Reviewed labs with pt. Elevated fasting glucose of 102 and last A1c 12/09/22 6.3%. Triglycerides 78. TC 165. LDL 110. HDL 40. PSA 2.19 ng/mL. Pt reports fear of flying and states he gets uncomfortable in the plane. [facility] Medical History Eczema Neuropathy GERD (gastroesophageal reflux disease) Back disorder Osteoporosis Arthritis Diabetes Sinusitis Surgical History History of tonsillectomy Housing: House Alcohol intake: current Alcohol intake frequency: a few times a week Patient Tobacco Use Status: Never used Tobacco e-Cigarette/Vaping Use: Never Used service: Yes Current occupational status: retired Cognitive needs: No Hearing needs: No Vision needs: Yes Questionnaire PATIENCE-7 AMB Questionnaire PATIENCE-7 Date PATIENCE - 7 assessed: 05/21/22 Source: Developed by Drs. Tariq Casey, Annika Cabral, Jigar Hill and colleagues, with an educational alfonso from [employer]. Review of Systems Const Denies chills, Denies fatigue, Denies fever(s), Denies headache(s) and Denies weakness Eyes Denies change in vision ENT Denies dizziness, Denies headache(s), Denies hearing loss, Denies nasal congestion, Denies sinus pain, Denies sinus pressure and Denies sore throat Card Denies chest pain, Denies lightheadedness, Denies dyspnea and Denies other (palpitations) Resp Denies cough, Denies dyspnea and Denies wheezing GI Denies abdominal pain, Denies melena, Denies hematochezia, Denies change in bowel habits, Denies dyspepsia and Denies nausea Denies hematuria and Denies dysuria Musc Denies abnormal gait, Denies myalgias, Denies arthralgias, Denies numbness and Denies tingling Skin/Breast Denies rash, Denies unusual bruising and Denies wounds Neuro Denies abnormal gait, Denies dizziness, Denies headache(s), Denies memory loss, Denies numbness, Denies Sensory deficit (Neuro), Denies tingling and Denies weakness Psych Denies anxiety, Denies depression and Denies memory loss Endo Denies cold intolerance, Denies fatigue, Denies heat intolerance, Denies polydipsia and Denies polyuria [place]/Lymph Denies easy bleeding and Denies easy bruising Aller/Immun Denies wheezing Physical exam (Primary Care) Vital Signs: Last Vital Signs Pulse 81 01/20/23 10:40 BP 132/78 01/20/23 10:40 Pulse Ox 98 01/20/23 10:40 Oxygen Delivery Method Room Air 01/20/23 10:40 BMI result Body Mass Index 38.8 Tobacco/Smoking Status: Tobacco use Status Tobacco use date assessed 10/08/22 01/20/23 10:45 Patient Tobacco Use Status Never used Tobacco 01/20/23 10:45 e-Cigarette/Vaping Use Never Used 01/20/23 10:45 Const General: no acute distress, well developed, alert and awake Nutritional Appearance: well nourished Orientation/consciousness: patient oriented x3 HENMT Head: Yes normocephalic and Yes atraumatic Ears: hearing grossly normal bilaterally and TM's normal bilaterally General nose exam: Normal external nose present and Normal nares present Mouth: Normal oral and palatal mucosa present and moist mucous membranes Teeth and gingiva: dentition normal Throat: Yes posterior oropharynx normal Eyes General: appearance normal, both eyes and all related structures Pupils: Equal, round and reactive pupils present and Pupil accommodation reflex normal EOM: EOMs intact bilaterally Neck Neck: Yes normal visual inspection, Yes no lymphadenopathy and Yes trachea midline Thyroid: Thyroid normal Carotids: no bruits Lymphatic: no lymphadenopathy noted Chest Chest palpation & inspection: normal inspection of the chest Resp Effort & Inspection: normal respiratory effort Auscultation: clear to auscultation bilaterally Cardio Rate: regular rate Rhythm: regular rhythm Heart sounds: S1 normal heart sound present, S2 normal heart sound present, no gallops, no murmurs and no rubs Bruits: no abdominal aortic bruits and no carotid bruits GI Palpation (GI): No Abdominal aortic bruit present, Soft to palpation, nontender, No hepatosplenomegaly present and No Rebound tenderness present Auscultation: normal bowel sounds General: Yes no CVA tenderness Back/Spine/Pelvis Back: no CVA tenderness Cervical Spine: cervical ROM normal and No Cervical spine tenderness Thoracic/Lumbar Spine: thoraco-lumbar ROM normal, No pain with thoraco-lumbar ROM, No thoracic spinal tenderness and No lumbar spinal tenderness Skin Lesions: no lesions Rashes: no rashes Trauma: no lacerations or abrasions Wounds: no wounds Nails: normal Neuro General: patient oriented x3 Cranial nerves: Yes Equal, round and reactive pupils present Cognition (Neuro): normal cognition Gait exam (Neuro): Normal gait present Motor exam (neuro): 5/5 motor strength present throughout Sensory Exam: No Sensory deficit (Neuro) Deep tendon reflexes (DTR's): Right patellar reflex intensity grade: 2+ and Left patellar reflex intensity grade: 2+ Extrem General: Yes normal to inspection and No edema Psych Appearance: grossly normal Affect: normal affect Attitude: cooperative Thought process: Normal thought process present Assessment and Plan Assessment & Plan (1) Adult general medical exam: Code(s): Z00.00 - Encounter for general adult medical examination without abnormal findings Plan: 72-year-old?male?presents?for?complete?physical?exam (2) Fear of flying: Code(s): F40.243 - Fear of flying Plan: Had?given?him?a?benzodiazepine?for?flight. #4 tabs and?he?can?take?about?20?minutes?before?take?off (3) Elevated fasting glucose: Code(s): R73.01 - Impaired fasting glucose Plan: A1c?6.3%?at?last?visit Continue?to?watch?starches?and?sugars Continue?weight?loss (4) Knee pain: Code(s): M25.569 - Pain in unspecified knee Plan: Seen?at?[facility] Continue?weight?loss (5) Diabetes mellitus with neuropathy: Code(s): E11.40 - Type 2 diabetes mellitus with diabetic neuropathy, unspecified Plan: Continue?to?keep?sugars?low (6) Screening for prostate cancer: Code(s): Z12.5 - Encounter for screening for malignant neoplasm of prostate Plan: PSA?was?within?normal?limits (7) Screening for colon cancer: Code(s): Z12.11 - Encounter for screening for malignant neoplasm of colon Plan: Followed?by??[facility] (8) Cramps of lower extremity: Code(s): R25.2 - Cramp and spasm Plan: Trial?tizanidine Patient?notes?that?he?gets?burning?and?cramping?in?his?legs ?which?may?be?secondary?to?neuropathy/diabetic?neuropathy?but?he?says?that?this? coincides?with?a?back?injury?he?had?in?the?past?and?he?has?never?had?an?EMG?or?f ollow-up?with?Neurology. Referred?to?neurology Orders: Referrals Neurology Referral G57.93 - Unspecified mononeuropathy of bilateral lower limbs, M54.16 - Radiculopathy, lumbar region, R25.2 - Cramp and spasm Medications: New tizanidine 2 mg PO BEDTIME PRN 30 tabs 0RF muscle spasticity 30 days tizanidine 2 mg PO BEDTIME PRN 30 tabs 0RF muscle spasticity 30 days Changed From omeprazole 40 mg (2 x 20 mg) PO DAILY 90 days 180 caps 3RF To omeprazole 20 mg PO DAILY 90 days 90 caps 3RF Refilled omeprazole 20 mg PO DAILY 90 caps 3RF 90 days Coding Level of Care Code Est Pt Level 4 (96477) Est Pt Prev Care >65y(78091) Diagnoses Adult general medical exam Z00.00 Fear of flying F40.243 Elevated fasting glucose R73.01 Knee pain M25.569 Diabetes mellitus with neuropathy E11.40 Screening for prostate cancer Z12.5 Screening for colon cancer Z12.11 Cramps of lower extremity R25.2
== END 2023-01-20 12:12 | disposition home or self-care (01) ==
PROVIDERS: PCP Family Medicine; Visit Provider Family Medicine
DX: Z00.00 Encounter for general adult medical examination without abnormal findings (principal); F40.243 Fear of flying; M25.569 Pain in unspecified knee; E11.40 Type 2 diabetes mellitus with diabetic neuropathy, unspecified; R25.2 Cramp and spasm
CPT/HCPCS: 99397

== ENCOUNTER 2023-01-26 09:45 | Outpatient (AMB) | payer OTHER, SELFPAY ==
--- NOTE | 2023-01-26 09:48 | A.OFFPC_ITS ---
Vital Signs 01/26/23 09:49 Height 5 ft 7 in Weight 245 lb 2 oz BMI 38.4 BP 138/76 Blood Pressure Location Lt brachial Position Sitting Respiration 13 Pulse 75 Pulse Source Pulse Oximeter Temp 97.6 F Temp Source Temporal Artery Scan Pulse Oximetry (%) 99 Oxygen Delivery Method Room Air Intake Visit Reasons: Ongoing Cough/ Nasal Drip Intake Note: Patient states that he came in to be seen for a physical with the day before nelda. Patient states that when he got eve he got violently sick and stayed in bed for the 24 hours following causing him to miss nelda. Patient states that he couldnt get out of bed. Patient states that he had 102 temp and also was puking when trying to eat some soup. Patient states that symptoms consists of sore throat, fatigue, throwing up, fever and a cough. Patient states he was misdiagnosed in 2007 for a cough and was rediagnosed pertussis. Patient wants to make sure it isnt that before seeing mother with cancer. 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 Accompanied by: Self / Same As Patient Allergies Seasonal Allergies Allergy (Intermediate, Verified 01/26/23 10:13) Itchy Eyes Medication List - Last Reconciled 01/26/23 by Vivian Aparicio CNP alpha lipoic acid 600 mg PO DAILY ascorbic acid (vitamin C) mg PO cholecalciferol (vitamin D3) 50 mcg PO DAILY docusate sodium 100 mg PO BID mecobalamin (vitamin B12) 1,000 mcg PO DAILY 90 days omeprazole 20 mg PO DAILY 90 days peg 3350-electrolytes 236-22.74-6.74 -5.86 gram (Golytely) 240 mL PO Q10M tizanidine 2 mg PO BEDTIME PRN 30 days triamcinolone acetonide 0.1% 1 appl topical BID-TID Tobacco use date assessed: 10/08/22 Fall risk assessment: No Falls in past year Last assessed Fall Risk: 01/26/23 Dental Screening Dental Screen Date: 01/26/23 Did you have a dental visit in the last 12 months?: Yes Did you have a dental problem in the last 6 months where you did not have access to dental care?: No Was dental information given to patient?: Patient has dentist HPI HPI Comments History of Present Illness Details 72-year-old male presents for sick visit He reports scratchy throat, nasal congestion, runny nose, post nasal drip, and productive cough with white discharge. His symptoms started on Thanksgiving and has been improving. He reports initial sore throat and fever that completely subsided. He denies fever, chills, body aches, fatigue, or weakness. He notes that his became ill 2 days ago with coughing and respiratory symptoms. He has not been tested for COVID. [facility] Medical History Eczema Neuropathy GERD (gastroesophageal reflux disease) Back disorder Osteoporosis Arthritis Diabetes Sinusitis Surgical History History of tonsillectomy Housing: House Alcohol intake: current Alcohol intake frequency: a few times a week Patient Tobacco Use Status: Never used Tobacco e-Cigarette/Vaping Use: Never Used service: Yes Current occupational status: retired Cognitive needs: No Hearing needs: No Vision needs: Yes Questionnaire PATIENCE-7 AMB Questionnaire PATIENCE-7 Date PATIENCE - 7 assessed: 05/21/22 Source: Developed by Drs. Tariq Casey, Annika Cabral, Jigar Hill and colleagues, with an educational alfonso from [employer]. Review of Systems Const Details: Const Denies chills, Denies fatigue, Denies fever(s), Denies headache(s) and Denies weakness ENT Reports as per HPI Card Denies chest pain, Denies lightheadedness, Denies dyspnea and Denies other (Palpitations) Resp Denies cough, Denies dyspnea, Denies wheezing and Denies other ( shortness of breath) GI Denies abdominal pain, Denies melena, Denies hematochezia, Denies change in bowel habits, Denies dyspepsia and Denies nausea Denies hematuria and Denies dysuria Musc Denies abnormal gait, Denies myalgias, Denies arthralgias, Denies numbness and Denies tingling Skin/Breast Denies rash, Denies unusual bruising and Denies wounds Neuro Denies abnormal gait, Denies dizziness, Denies headache(s), Denies memory loss, Denies numbness, Denies Sensory deficit (Neuro), Denies tingling and Denies weakness Psych Denies anxiety, Denies depression, Denies memory loss Endo Denies cold intolerance, Denies fatigue, Denies heat intolerance, Denies polydipsia and Denies polyuria Aller/Immun Denies wheezing Physical exam (Primary Care) Vital Signs: Last Vital Signs Temp 97.6 F 01/26/23 09:49 Pulse 75 01/26/23 09:49 Resp 13 01/26/23 09:49 BP 138/76 01/26/23 09:49 Pulse Ox 99 01/26/23 09:49 Oxygen Delivery Method Room Air 01/26/23 09:49 BMI result Body Mass Index 38.4 Tobacco/Smoking Status: Tobacco use Status Tobacco use date assessed 10/08/22 01/26/23 09:55 Patient Tobacco Use Status Never used Tobacco 01/26/23 09:55 e-Cigarette/Vaping Use Never Used 01/26/23 09:55 Const Other: General: no acute distress and well developed Nutritional Appearance: well nourished Orientation/consciousness: patient oriented x3 HENMT Head is normocephalic Bilateral ear canal and TM are normal Nasal turbinates and oropharynx are pink and moist Sinuses are nontender with palpation No auricular or cervical lymphadenopathy Eyes General: appearance normal, both eyes and all related structures Pupils: Equal, round and reactive pupils present EOM: EOMs intact bilaterally Resp Effort & Inspection: normal respiratory effort Auscultation: clear to auscultation bilaterally Cardio Rate: regular rate Rhythm: regular rhythm Heart sounds: S1 normal heart sound present, S2 normal heart sound present, no gallops, no murmurs and no rubs GI Palpation (GI): No Abdominal aortic bruit present, Soft to palpation, nontender, No hepatosplenomegaly present and No Rebound tenderness present Auscultation: normal bowel sounds General: Yes no CVA tenderness Back/Spine/Pelvis Back: no CVA tenderness Cervical Spine: cervical ROM normal and No Cervical spine tenderness Thoracic/Lumbar Spine: thoraco-lumbar ROM normal, No pain with thoraco-lumbar ROM, No thoracic spinal tenderness and No lumbar spinal tenderness Extrem General: Yes normal to inspection, No edema and No calf tenderness Skin General: warm and dry. Normal skin color. Normal skin turgor Neuro General: patient oriented x3, gait normal and no focal neuro deficit Cranial nerves: Yes Equal, round and reactive pupils present Cognition (Neuro): normal cognition Gait exam (Neuro): Normal gait present Sensory Exam: No Sensory deficit (Neuro) Psych Appearance: grossly normal Affect: normal affect Attitude: cooperative Thought process: Normal thought process present Assessment and Plan Assessment & Plan (1) Viral upper respiratory illness: Code(s): J06.9 - Acute upper respiratory infection, unspecified Plan: Likely viral illness though possibly allergies. No exam evidence of bacterial infection Viral illness There is no antibiotic medication for viruses.? They must run their course.? Most average 5-7 days but 7-10 days is not uncommon and up to 14 days is still possible.? A cough is often the last symptom to resolve and this can last for weeks in some cases. Rest Hydrate well -? Drink plenty of fluids.? Especially water. Tylenol or ibuprofen for muscle aches, headache, fever/discomfort Zyrtec, Flonase, and benzonatate as prescribed Cannot rule out COVID-19/RSV/Flu infection Nasal swab acquired and will be sent to the lab Return for new or worsening symptoms Verbalized understanding and agreed with treatment plan. Orders: Orders SARS-CoV2/FLU/RSV Today J06.9 - Acute upper respiratory infection, unspecified Medications: New cetirizine (Zyrtec) 10 mg PO DAILY 30 days 30 tabs 1RF benzonatate 200 mg PO BID PRN 20 caps 0RF cough fluticasone propionate 50 mcg/actuation (Flonase Allergy Relief) administer into each nostril 1 spray intranasal Q12H 16 grams 0RF Coding Level of Care Code Est Pt Level 3 (60754) Diagnoses Viral upper respiratory illness J06.9
[2023-01-26 09:49] VITALS: BP 138/76; PULSE 75; RESP 13; TEMP 36.4; O2SAT 99; BMI 38.4
== END 2023-01-26 11:03 | disposition home or self-care (01) ==
PROVIDERS: PCP Family Medicine; Visit Provider Nurse Practitioner Family
DX: J06.9 Acute upper respiratory infection, unspecified (principal)
CPT/HCPCS: 99213

== ENCOUNTER 2023-01-26 10:33 | Outpatient (REF) | payer OTHER, SELFPAY ==
[2023-01-26 15:31] LABS: Influenza A PCR NEGATIVE (Negative); Influenza B PCR NEGATIVE (Negative); Resp Syncy Virus RNA Qual PCR NEGATIVE (Negative); SARS COV2 PCR INHOUSE POSITIVE (Negative)
== END 2023-01-26 10:34 | disposition home or self-care (01) ==
LOC: HO.LAB 10:33
PROVIDERS: Visit Provider Nurse Practitioner Family
DX: Z11.52 Encounter for screening for COVID-19 (principal); J06.9 Acute upper respiratory infection, unspecified
CPT/HCPCS: 0241U

== ENCOUNTER 2023-03-04 10:32 | Outpatient (AMB) | payer OTHER, SELFPAY ==
--- NOTE | 2023-03-04 10:42 | MHC.PC.OV ---
Vital Signs 03/04/23 10:43 Height 5 ft 7 in Weight 243 lb BMI 38.1 BP 128/72 Blood Pressure Location Lt brachial Position Sitting Pulse 67 Pulse Source Pulse Oximeter Pulse Oximetry (%) 99 Oxygen Delivery Method Room Air Intake Visit Reasons: f/u chronic conditions Intake Note: Patient is here to follow up on chronic conditions Allergies Seasonal Allergies Allergy (Intermediate, Verified 03/04/23 10:44) Itchy Eyes Tobacco use date assessed: 03/04/23 Fall risk assessment: No Falls in past year Last assessed Fall Risk: 03/04/23 HPI f/u chronic conditions HPI Details 72 y/o male presents to f/u chronic conditions. Following up on cough and lower extremity neuropathy, cramping and lumbar radiculopathy. He notes Neurology has not contacted him yet about lower extremity neuropathy, cramping and lumbar radiculopathy. Pt reports cough has resolved. [facility] Medical History Eczema Neuropathy GERD (gastroesophageal reflux disease) Back disorder Osteoporosis Arthritis Diabetes Sinusitis Surgical History History of tonsillectomy Social History Housing: House Alcohol intake: current Alcohol intake frequency: a few times a week Patient Tobacco Use Status: Never used Tobacco e-Cigarette/Vaping Use: Never Used service: Yes Current occupational status: retired Cognitive needs: No Hearing needs: No Vision needs: Yes Questionnaire PATIENCE-7 AMB Questionnaire PATIENCE-7 Date PATIENCE - 7 assessed: 05/21/22 Source: Developed by Drs. Tariq Casey, Annika Cabral, Jigar Hill and colleagues, with an educational alfonso from [employer]. Review of Systems Const Denies chills, Denies fatigue, Denies fever(s), Denies headache(s) and Denies weakness ENT Denies dizziness and Denies headache(s) Card Denies chest pain, Denies lightheadedness, Denies dyspnea and Denies other (Palpitations) Resp Denies cough, Denies dyspnea, Denies wheezing and Denies other ( shortness of breath) Musc Denies numbness and Denies tingling Neuro Denies dizziness, Denies headache(s), Denies numbness, Denies tingling, Denies paresthesias and Denies weakness Psych Denies anxiety and Denies depression Endo Denies fatigue Aller/Immun Denies wheezing Physical exam (Primary Care) Vital Signs: Last Vital Signs Pulse 67 03/04/23 10:43 BP 128/72 03/04/23 10:43 Pulse Ox 99 03/04/23 10:43 Oxygen Delivery Method Room Air 03/04/23 10:43 BMI result Body Mass Index 38.1 Tobacco/Smoking Status: Tobacco use Status Tobacco use date assessed 03/04/23 03/04/23 10:50 Patient Tobacco Use Status Never used Tobacco 03/04/23 10:50 e-Cigarette/Vaping Use Never Used 03/04/23 10:50 Const General: no acute distress and well developed Nutritional Appearance: well nourished and obese Orientation/consciousness: patient oriented x3 HENMT Head: Yes normocephalic and Yes atraumatic Eyes General: appearance normal, both eyes and all related structures Pupils: Equal, round and reactive pupils present EOM: EOMs intact bilaterally Resp Effort & Inspection: normal respiratory effort Auscultation: clear to auscultation bilaterally Cardio Rate: regular rate Rhythm: regular rhythm Heart sounds: S1 normal heart sound present, S2 normal heart sound present, no gallops, no murmurs and no rubs Neuro General: patient oriented x3 and gait normal Cranial nerves: Yes Equal, round and reactive pupils present Psych Affect: normal affect Assessment and Plan Assessment & Plan (1) Neuropathy: Code(s): G62.9 - Polyneuropathy, unspecified Plan: Ongoing?cramps?and?neuropathy?of?bilateral?lower?extremities,?left?worse?than?right I?referred?him?to?Neurology?for?EMG?testing?as?he?notes?that?this?started?with?an?injury?to?his?back. He?has?not?been?called?back?by?Neurology?so?I?have?given?him?the?number?today. (2) Cramps of lower extremity: Code(s): R25.2 - Cramp and spasm Plan: Tizanidine?is?helping Continue?medication As?above,?he?is?referred?for?EMG?testing?as?well. Cont B12 (3) Cough: Code(s): R05.9 - Cough, unspecified Plan: s/p Covid. Feeling well and lungs clear now Resolved (4) Knee pain: Code(s): M25.569 - Pain in unspecified knee Plan: Bilateral?knee?pain He?notes?that?meloxicam?has?helped?so?I?have?sent?script?for?this Follow-up?with?[facility] Medications: New meloxicam 15 mg PO DAILY 30 days 30 tabs 2RF meloxicam 15 mg PO DAILY 30 tabs 2RF 30 days Refilled tizanidine 2 mg PO BEDTIME 30 days PRN 30 tabs 0RF muscle spasticity Coding Level of Care Code Est Pt Level 4 (53686) Diagnoses Neuropathy G62.9 Cramps of lower extremity R25.2 Cough R05.9 Knee pain M25.569
[2023-03-04 10:43] VITALS: BP 128/72; PULSE 67; O2SAT 99; BMI 38.1
== END 2023-03-04 11:22 | disposition home or self-care (01) ==
PROVIDERS: PCP Family Medicine; Visit Provider Family Medicine
DX: G62.9 Polyneuropathy, unspecified (principal); R25.2 Cramp and spasm; R05.9 Cough, unspecified; M25.569 Pain in unspecified knee
CPT/HCPCS: 99214

== ENCOUNTER 2023-05-17 09:06 | Outpatient (REF) | payer OTHER, SELFPAY ==
[2023-05-17 11:46] LABS: Alanine Aminotransferase 20 U/L (0-40); Alkaline Phosphatase 74 U/L (39-117); Anion Gap 10 (12-20); Aspartate Amino Transferase 20 U/L (5-37); Bilirubin Total 0.5 mg/dL (0.0-1.0); Blood Urea Nitrogen 15 mg/dL (9-16); Calcium 9.5 mg/dL (8.4-10.2); Carbon Dioxide 29 mmol/L (22-29); Chloride 105 mmol/L (96-108); Estimated Glomerular Filt Rate > 60; Glucose Random 98 mg/dL (60-115); Potassium 4.3 mmol/L (3.3-5.1); Sodium 140 mmol/L (135-145); Total Protein 7.2 g/dL (6.5-8.0)
[2023-05-17 11:49] LABS: Estimated Average Glucose 123 mg/dL; Hemoglobin A1c % 5.9 % (<6.0)
[2023-05-17 12:05] LABS: Vitamin D 25-OH Total 33.1 ng/mL (>30)
[2023-05-17 12:29] LABS: Folate 4.9 ng/mL (> or = 4.0); Vitamin B12 608 pg/mL (200-900)
== END 2023-05-17 09:07 | disposition home or self-care (01) ==
LOC: HO.WFDLDS 09:06
PROVIDERS: Visit Provider Family Medicine
DX: M79.606 Pain in leg, unspecified (principal); E11.40 Type 2 diabetes mellitus with diabetic neuropathy, unspecified; E55.9 Vitamin D deficiency, unspecified; E53.8 Deficiency of other specified B group vitamins
CPT/HCPCS: 36415; 80053; 82306; 82607; 82746; 83036

== ENCOUNTER 2023-05-20 09:16 | Outpatient (AMB) | payer OTHER, SELFPAY ==
[2023-05-20 09:20] VITALS: BP 130/80; PULSE 71; O2SAT 98; BMI 37.6
--- NOTE | 2023-05-20 09:20 | A.OFFPC_ITS ---
Vital Signs 05/20/23 09:20 Height 5 ft 7 in Weight 240 lb 2 oz BMI 37.6 BP 130/80 Blood Pressure Location Lt brachial Position Sitting Pulse 71 Pulse Source Pulse Oximeter Pulse Oximetry (%) 98 Oxygen Delivery Method Room Air Intake Visit Reasons: f/u diabetes Intake Note: Patient is here for follow up on diabetes. Allergies Seasonal Allergies Allergy (Intermediate, Verified 05/20/23 09:28) Itchy Eyes Medication List - Last Reconciled 05/20/23 by Rogelio Marin MD alpha lipoic acid 600 mg PO DAILY ascorbic acid (vitamin C) mg PO benzonatate 200 mg PO BID PRN cetirizine (Zyrtec) 10 mg PO DAILY 30 days cholecalciferol (vitamin D3) 50 mcg PO DAILY curcumin-phosphatidylcholine mg PO cyanocobalamin (vitamin B-12) 1,000 mcg PO DAILY 90 days docusate sodium 100 mg PO BID fluticasone propionate 50 mcg/actuation (Flonase Allergy Relief) 1 spray intranasal Q12H meloxicam 15 mg PO DAILY 30 days omeprazole 20 mg PO DAILY 90 days peg 3350-electrolytes 236-22.74-6.74 -5.86 gram (Golytely) 240 mL PO Q10M tizanidine 2 mg PO BEDTIME PRN 30 days triamcinolone acetonide 0.1% 1 appl topical BID-TID zinc gluconate 50 mg PO DAILY Tobacco use date assessed: 05/20/23 Fall risk assessment: 1 Fall in past year Last assessed Fall Risk: 05/20/23 Dental Screening Dental Screen Date: 05/20/23 Did you have a dental visit in the last 12 months?: Yes Did you have a dental problem in the last 6 months where you did not have access to dental care?: No Was dental information given to patient?: Patient has dentist HPI f/u diabetes HPI Details 72 y/o male presents to f/u diabetes as well as LE radicular symptoms and neuropathy. Had referred him to Neurology. A1c 05/17/23 5.9%. Diet controlled diabetes. [facility] Medical History Eczema Neuropathy GERD (gastroesophageal reflux disease) Back disorder Osteoporosis Arthritis Diabetes Sinusitis Surgical History History of tonsillectomy Social History Housing: House Alcohol intake: current Alcohol intake frequency: a few times a week Patient Tobacco Use Status: Never used Tobacco e-Cigarette/Vaping Use: Never Used service: Yes Current occupational status: retired Cognitive needs: No Hearing needs: No Vision needs: Yes Questionnaire PHQ-9 Over the last 2 weeks, how often have you been bothered by any of the following problems? 1. Little interest or pleasure in doing things: not at all 2. Feeling down, depressed, or hopeless: not at all 3. Trouble falling or staying asleep, or sleeping too much: not at all 4. Feeling tired or having little energy: not at all 5. Poor appetite or overeating: not at all 6. Feeling bad about yourself - or that you are a failure or have let yourself or your family down: not at all 7. Trouble concentrating on things, such as reading the newspaper or watching television: not at all 8. Moving or speaking so slowly that other people could have noticed. Or the opposite - being so fidgety or restless that you have been moving around a lot more than usual: not at all 9. Thoughts that you would be better off or of hurting yourself in some way: not at all Total score: 0 Depression Screening Interpretation: Negative Depression Screening Done: Yes 32096 - PHQ-9 Billing: Yes Source: Developed by Drs. Tariq Casey, Annika Cabral, Jigar Hill and colleagues, with an educational alfonso from [employer]. Thrive Questionnaire Date Thrive assessed: 05/20/23 I am a: Patient What is your living situation today?: I have a steady place to live Within the past 12 months, did the food you bought not last and you didn't have the money to get more?: Never true Within the past 12 months, did you worry whether your food would run out before you got money to buy more?: Never true Do you have trouble paying for medicines?: No Do you have trouble getting transportation to medical appointments?: No Do you have trouble paying your heating and electricity bill?: No Do you have trouble taking care of your child, family member or friend?: No Do you have trouble with day-to-day activities such as bathing, preparing meals, shopping, managing finances, etc.?: No Are you currently unemployed and looking for a job?: No Are you interested in more education?: No THRIVE Score: 0 AUDIT C Alcohol Use Questionnaire (AUDIT-C) 1. How often do you have a drink containing alcohol?: Monthly or less 2. How many drinks containing alcohol do you have on a typical day when you are drinking?: 1 or 2 3. How often do you have six or more drinks on one occasion?: Never Total Score: 1 PATIENCE-7 AMB Questionnaire PATIENCE-7 Date PATIENCE - 7 assessed: 05/20/23 Feeling nervous, anxious, or on edge: 0 = Not at all Not being able to stop or control worryin = Not at all Worrying too much about different things: 0 = Not at all Trouble relaxin = Not at all Being so restless that it is hard to sit still: 0 = Not at all Becoming easily annoyed or irritable: 0 = Not at all Feeling afraid as if something awful might happen: 0 = Not at all Total PATIENCE-7 score (0-4 normal; 5-9 mild; 10-14 moderate; 15-21 severe): 0 Source: Developed by Drs. Tariq Casey, Annika Cabral, Jigar Hill and colleagues, with an educational alfonso from [employer]. PATIENCE-7 Assessment Billing PATIENCE-7 Assessment Tool: PATIENCE-7 Assessment 10222 Review of Systems Const Denies chills, Denies fatigue, Denies fever(s), Denies headache(s) and Denies weakness ENT Denies dizziness and Denies headache(s) Card Denies dyspnea Resp Denies cough, Denies dyspnea, Denies wheezing and Denies other (shortness of breath) Musc Denies numbness and Denies tingling Neuro Denies dizziness, Denies headache(s), Denies numbness, Denies tingling and Denies weakness Psych Denies anxiety and Denies depression Endo Denies fatigue Aller/Immun Denies wheezing Physical exam (Primary Care) Vital Signs: Last Vital Signs Pulse 71 05/20/23 09:20 BP 130/80 05/20/23 09:20 Pulse Ox 98 05/20/23 09:20 Oxygen Delivery Method Room Air 05/20/23 09:20 BMI result Body Mass Index 37.6 Tobacco/Smoking Status: Tobacco use Status Tobacco use date assessed 05/20/23 05/20/23 09:29 Patient Tobacco Use Status Never used Tobacco 05/20/23 09:22 e-Cigarette/Vaping Use Never Used 05/20/23 09:22 PHQ-9: PHQ-9 Score PHQ-9: Total score 0 05/20/23 09:33 Depression Screening Interpretation: Negative Thrive Assessment: Date of Thrive Assessment Date Thrive assessed 05/20/23 05/20/23 09:33 Const General: well developed; No acute distress Nutritional Appearance: well nourished Orientation/consciousness: patient oriented x3 HENMT Head: Yes normocephalic and Yes atraumatic Eyes General: appearance normal, both eyes and all related structures Pupils: Equal, round and reactive pupils present EOM: EOMs intact bilaterally Resp Effort & Inspection: normal respiratory effort Neuro General: patient oriented x3 and gait normal Cranial nerves: Yes Equal, round and reactive pupils present Psych Affect: normal affect Assessment and Plan Assessment & Plan (1) Diabetes mellitus with neuropathy: Code(s): E11.40 - Type 2 diabetes mellitus with diabetic neuropathy, unspecified Plan: Diet-controlled?diabetes A1c?5.9%?and?goal?is?less?than?7.0% No?wounds?or?abrasions?on?his?feet.??He?is?followed?by?Podiatry?every?2?months?f or?foot?and?nail?care. Last?eye?exam?was?fall?of?2022?and?no?diabetic?retinopathy?was?seen.??Up-to-date Continue?diet?control Encouraged?exercise?and?weight?loss (2) GERD (gastroesophageal reflux disease): Code(s): K21.9 - Gastro-esophageal reflux disease without esophagitis Plan: Patient?says?he?is?rarely?getting?any?heartburn?or?reflux?anymore. He?can?use?medication?intermittently Coding Level of Care Code Est Pt Level 3 (39926) Diagnoses Diabetes mellitus with neuropathy E11.40 GERD (gastroesophageal reflux disease) K21.9 Additional Codes PATIENCE-7 Assessment Billing - PATIENCE-7 Assessment Tool: PATIENCE-7 Assessment 88471 ([id number])
== END 2023-05-20 10:03 | disposition home or self-care (01) ==
PROVIDERS: PCP Family Medicine; Visit Provider Family Medicine
DX: E11.40 Type 2 diabetes mellitus with diabetic neuropathy, unspecified (principal); K21.9 Gastro-esophageal reflux disease without esophagitis
CPT/HCPCS: 99213

== ENCOUNTER 2023-08-23 09:20 | Outpatient (AMB) | payer OTHER, SELFPAY ==
--- NOTE | 2023-08-23 09:30 | MHC.OFFWIV ---
Intake Vital Signs 08/23/23 09:31 Height 5 ft 7 in Weight 241 lb 8 oz BMI 37.8 BP 132/78 Blood Pressure Location Rt brachial Position Sitting Pulse 70 Pulse Source Pulse Oximeter Temp 98.1 F Temp Source Temporal Artery Scan Pulse Oximetry (%) 96 Oxygen Delivery Method Room Air Intake Visit Reasons: Possible thumb infection Intake Note: Pt presents to the office today for a possible thumb infection. Pt states he was given antibiotics from his bullard machine operator for a skin infection back in June but states he has a blistery patch on his right thumb. Patient Tobacco Use Status: Never used Tobacco Allergies Seasonal Allergies Allergy (Intermediate, Verified 08/23/23 09:49) Itchy Eyes Medication List - Last Reconciled 08/23/23 by Maeve Napoles, LEGAL OFFICE ADMINISTRATOR-BC ascorbic acid (vitamin C) mg PO cetirizine (Zyrtec) 10 mg PO DAILY 30 days cholecalciferol (vitamin D3) 50 mcg PO DAILY curcumin-phosphatidylcholine mg PO cyanocobalamin (vitamin B-12) 1,000 mcg PO DAILY 90 days docusate sodium 100 mg PO BID fluticasone propionate 50 mcg/actuation (Flonase Allergy Relief) 1 spray intranasal Q12H omeprazole 20 mg PO DAILY 90 days peg 3350-electrolytes 236-22.74-6.74 -5.86 gram (Golytely) 240 mL PO Q10M tizanidine 2 mg PO BEDTIME PRN 30 days triamcinolone acetonide 0.1% 1 appl topical BID-TID zinc gluconate 50 mg PO DAILY HPI HPI Comments History of Present Illness Details Here today w/ concern for infection in R thumb and left pointer finger active w/ derm for eczema On 07/29/23 Derm: topical cream and steroid injection and 10 day course of Doxycycline He wants to make sure there isnt an infection in r thumb and left finger Trying to keep clean and dry. Covered by bandaid. Denies fever chills redness drainage swelling. [facility] Medical History Eczema Neuropathy GERD (gastroesophageal reflux disease) Back disorder Osteoporosis Arthritis Diabetes Sinusitis Surgical History History of tonsillectomy Social History Housing: House Alcohol intake: current Alcohol intake frequency: a few times a week Patient Tobacco Use Status: Never used Tobacco e-Cigarette/Vaping Use: Never Used service: Yes Current occupational status: retired Cognitive needs: No Hearing needs: No Vision needs: Yes Review of Systems Const All systems reviewed & are unremarkable except as noted in HPI and below Physical Exam Vital Signs: Last Vital Signs Temp 98.1 F 08/23/23 09:31 Pulse 70 08/23/23 09:31 BP 132/78 08/23/23 09:31 Pulse Ox 96 08/23/23 09:31 Oxygen Delivery Method Room Air 08/23/23 09:31 BMI result Body Mass Index 37.8 Extrem Hand/finger images: 1. hyperkeratotic skin w/o infection assoc w/ pale pink eczematous plaque 2. same as above Assessment & Plan Assessment & Plan (1) Dermatitis: Comment: affecting R thumb & left pointer finger Code(s): L30.9 - Dermatitis, unspecified Plan: This note is constructed using voice recognition software. While every effort has been made to ensure accuracy in delivery manager, still errors may have been included Sometimes, these errors may affect the content or meaning of the given sentence . Total time spent caring for the patient today was 30 minutes. This includes time spent before the visit reviewing the chart, time spent during the visit, and time spent after the visit on documentation Patient Instructions: Use antibacterial soap and water to cleanse hands Then keep hands very moist using topical ointments (what you have at home, versus something like A&D ointment or Bagbalm). Also use topical steroid that you have at home to apply to raised area on thumb twice per day There is no infection present today If you develop redness to the skin, streaking of skin, fever or drainage please seek additional medical care. Coding Level of Care Code Est Pt Level 4 (62989) Diagnoses Dermatitis L30.9
[2023-08-23 09:31] VITALS: BP 132/78; PULSE 70; TEMP 36.7; O2SAT 96; BMI 37.8
== END 2023-08-23 10:02 | disposition home or self-care (01) ==
PROVIDERS: PCP Family Medicine; Visit Provider Nurse Practitioner Family
DX: L30.9 Dermatitis, unspecified (principal)
CPT/HCPCS: 99214

== ENCOUNTER 2023-09-27 09:24 | Outpatient (AMB) | payer OTHER, SELFPAY ==
[2023-09-27 09:26] VITALS: BP 130/70; PULSE 66; O2SAT 99; BMI 36.7
--- NOTE | 2023-09-27 09:26 | A.OFFPC_ITS ---
Vital Signs 09/27/23 09:26 Height 5 ft 7 in Weight 234 lb 6 oz BMI 36.7 BP 130/70 Blood Pressure Location Rt brachial Position Sitting Pulse 66 Pulse Source Pulse Oximeter Pulse Oximetry (%) 99 Oxygen Delivery Method Room Air Intake Visit Reasons: f/u diabetes Intake Note: Farhad is a 73 year old male who presents to the office today for a f/u diabetes. Pt has no concerns at this time. Allergies Seasonal Allergies Allergy (Intermediate, Verified 09/27/23 09:32) Itchy Eyes Tobacco use date assessed: 05/20/23 Dental Screening Dental Screen Date: 05/20/23 Did you have a dental visit in the last 12 months?: Yes Did you have a dental problem in the last 6 months where you did not have access to dental care?: No Was dental information given to patient?: Patient has dentist HPI f/u diabetes HPI Details 73 y/o male presents to f/u diabetes. Last A1c 05/17/23 5.9% - diet controlled diabetes. A1c today 09/27/23 5.7%. Pt reports ongoing neuropathy on bilateral legs/feet. Has not seen a neurologist yet and pt is concerned he is unable to afford this. Also has complaints of L foot drop. Has trialed gabapentin, muscle relaxers and reports this did not alleviate pain. [facility] Medical History Eczema Neuropathy GERD (gastroesophageal reflux disease) Back disorder Osteoporosis Arthritis Diabetes Sinusitis Surgical History History of tonsillectomy Social History Housing: House Alcohol intake: current Alcohol intake frequency: a few times a week Patient Tobacco Use Status: Never used Tobacco e-Cigarette/Vaping Use: Never Used service: Yes Current occupational status: retired Cognitive needs: No Hearing needs: No Vision needs: Yes Questionnaire PHQ-9 Over the last 2 weeks, how often have you been bothered by any of the following problems? 1. Little interest or pleasure in doing things: not at all 2. Feeling down, depressed, or hopeless: not at all 3. Trouble falling or staying asleep, or sleeping too much: not at all 4. Feeling tired or having little energy: not at all 5. Poor appetite or overeating: not at all 6. Feeling bad about yourself - or that you are a failure or have let yourself or your family down: not at all 7. Trouble concentrating on things, such as reading the newspaper or watching television: not at all 8. Moving or speaking so slowly that other people could have noticed. Or the opposite - being so fidgety or restless that you have been moving around a lot more than usual: not at all 9. Thoughts that you would be better off or of hurting yourself in some way: not at all Total score: 0 Depression Screening Interpretation: Negative Depression Screening Done: Yes 50228 - PHQ-9 Billing: Yes Source: Developed by Drs. Tariq Casey, Annika Cabral, Jigar Hill and colleagues, with an educational alfonso from [employer]. Thrive Questionnaire Date Thrive assessed: 05/20/23 I am a: Patient What is your living situation today?: I have a steady place to live Within the past 12 months, did the food you bought not last and you didn't have the money to get more?: Never true Within the past 12 months, did you worry whether your food would run out before you got money to buy more?: Never true Do you have trouble paying for medicines?: No Do you have trouble getting transportation to medical appointments?: No Do you have trouble paying your heating and electricity bill?: No Do you have trouble taking care of your child, family member or friend?: No Do you have trouble with day-to-day activities such as bathing, preparing meals, shopping, managing finances, etc.?: No Are you currently unemployed and looking for a job?: No Are you interested in more education?: No THRIVE Score: 0 AUDIT C Alcohol Use Questionnaire (AUDIT-C) 1. How often do you have a drink containing alcohol?: Monthly or less 2. How many drinks containing alcohol do you have on a typical day when you are drinking?: 1 or 2 3. How often do you have six or more drinks on one occasion?: Never Total Score: 1 PATIENCE-7 AMB Questionnaire PATIENCE-7 Date PATIENCE - 7 assessed: 05/20/23 Feeling nervous, anxious, or on edge: 0 = Not at all Not being able to stop or control worryin = Not at all Worrying too much about different things: 0 = Not at all Trouble relaxin = Not at all Being so restless that it is hard to sit still: 0 = Not at all Becoming easily annoyed or irritable: 0 = Not at all Feeling afraid as if something awful might happen: 0 = Not at all Total PATIENCE-7 score (0-4 normal; 5-9 mild; 10-14 moderate; 15-21 severe): 0 Source: Developed by Drs. Tariq Casey, Annika Cabral, Jigar Hill and colleagues, with an educational alfonso from [employer]. PATIENCE-7 Assessment Billing PATIENCE-7 Assessment Tool: PATIENCE-7 Assessment 23382 Review of Systems Const Denies chills, Denies fatigue, Denies fever(s), Denies headache(s) and Denies weakness ENT Denies dizziness and Denies headache(s) Card Denies dyspnea Resp Denies cough, Denies dyspnea, Denies wheezing and Denies other (shortness of breath) Musc Denies numbness and Denies tingling Neuro Denies dizziness, Denies headache(s), Denies numbness, Denies tingling and Denies weakness Psych Denies anxiety and Denies depression Endo Denies fatigue Aller/Immun Denies wheezing Physical exam (Primary Care) Vital Signs: Last Vital Signs Pulse 66 09/27/23 09:26 BP 130/70 09/27/23 09:26 Pulse Ox 99 09/27/23 09:26 Oxygen Delivery Method Room Air 09/27/23 09:26 BMI result Body Mass Index 36.7 Tobacco/Smoking Status: Tobacco use Status Tobacco use date assessed 05/20/23 09/27/23 09:26 Patient Tobacco Use Status Never used Tobacco 09/27/23 09:26 e-Cigarette/Vaping Use Never Used 09/27/23 09:26 PHQ-9: PHQ-9 Score PHQ-9: Total score 0 09/27/23 09:36 Depression Screening Interpretation: Negative Thrive Assessment: Date of Thrive Assessment Date Thrive assessed 05/20/23 09/27/23 09:26 Const General: well developed; No acute distress Nutritional Appearance: well nourished Orientation/consciousness: patient oriented x3 HENMT Head: Yes normocephalic and Yes atraumatic Eyes General: appearance normal, both eyes and all related structures Pupils: Equal, round and reactive pupils present EOM: EOMs intact bilaterally Resp Effort & Inspection: normal respiratory effort Neuro General: patient oriented x3 and gait normal Cranial nerves: Yes Equal, round and reactive pupils present Psych Affect: normal affect Results AMB Hemoglobin A1c AMB Hemoglobin A1c 5.7 % Last Edit by Danita Tejada CMA on 09/27/23 09:44 Assessment and Plan Assessment & Plan (1) Diabetes mellitus with neuropathy: Code(s): E11.40 - Type 2 diabetes mellitus with diabetic neuropathy, unspecified Plan: Okay?A1c?5.7%.??Good?control.??Goal?is?less?than?7.0% Continue?diet?control (2) Foot drop, left: Code(s): M21.372 - Foot drop, left foot Plan: Patient?notes?worsening?paresthesias?and?neuropathy/numbness?and?tingling?in?elena ateral?feet. Now?notes?weakness?and?occasional?worsening? to?the?point?of?left?footdrop?which?is?currently?intermittent Referred?to?neurology Trial?pregabalin Offered?physical?therapy?and?patient?declines?for?now. If?he?is?unable?to?get?an?appointment?with ?Neurology?soon,?will?check?imaging?of?lumbar?spine Orders: Orders Lipid Panel Today Z00.00 - Encounter for general adult medical examination without abnormal findings TSH reflex Free T4 Today Z00.00 - Encounter for general adult medical examination without abnormal findings UA and rflx microscopic Today Z00.00 - Encounter for general adult medical examination without abnormal findings AMB Hemoglobin A1c Today E11.40 - Type 2 diabetes mellitus with diabetic neuropathy, unspecified Comprehensive [place]. Panel Fast Today Z00.00 - Encounter for general adult medical examination without abnormal findings Complete Blood Count Auto Diff Today Z00.00 - Encounter for general adult medical examination without abnormal findings Microalbumin, Random (w Creat) Today I10 - Essential (primary) hypertension Prostate Specific Antigen Scr Today Z12.5 - Encounter for screening for malignant neoplasm of prostate Referrals Neurology Referral G62.9 - Polyneuropathy, unspecified, M21.372 - Foot drop, left foot, M54.16 - Radiculopathy, lumbar region Medications: New pregabalin 50 mg PO BEDTIME 30 days 30 caps 1RF Coding Level of Care Code Est Pt Level 4 (06893) Diagnoses Diabetes mellitus with neuropathy E11.40 Foot drop, left M21.372 Additional Codes PATIENCE-7 Assessment Billing - PATIENCE-7 Assessment Tool: PATIENCE-7 Assessment 41816 ([id number])
== END 2023-09-27 10:16 | disposition home or self-care (01) ==
PROVIDERS: PCP Family Medicine; Visit Provider Family Medicine
DX: E11.40 Type 2 diabetes mellitus with diabetic neuropathy, unspecified (principal); M21.372 Foot drop, left foot
CPT/HCPCS: 83036; 99214

== ENCOUNTER 2024-03-27 08:37 | Outpatient (AMB) | payer OTHER, SELFPAY ==
--- NOTE | 2024-03-27 08:37 | MHC.OFFWIV ---
Intake Vital Signs 03/27/24 08:42 Height 5 ft 7 in Weight 250 lb 6 oz BMI 39.2 BP 124/68 Blood Pressure Location Lt brachial Position Sitting Respiration 13 Pulse 72 Pulse Source Pulse Oximeter Temp 97.5 F Temp Source Oral Pulse Oximetry (%) 96 Oxygen Delivery Method Room Air Intake Visit Reasons: Infection in right hand pinky. Intake Note: Patient complaining of left hand pinky finger pain, cracked and bleeding x 12 weeks Patient Tobacco Use Status: Never used Tobacco Allergies Seasonal Allergies Allergy (Intermediate, Verified 03/27/24 09:17) Itchy Eyes Medication List - Last Reconciled 03/27/24 by Maeve Napoles, [employer]-BC ascorbic acid (vitamin C) mg PO cetirizine (Zyrtec) 10 mg PO DAILY 30 days cholecalciferol (vitamin D3) 50 mcg PO DAILY curcumin-phosphatidylcholine mg PO cyanocobalamin (vitamin B-12) 1,000 mcg PO DAILY 90 days docusate sodium 100 mg PO BID fexofenadine (Allergy Relief (fexofenadine)) 60 mg PO BID fluticasone propionate 50 mcg/actuation (Flonase Allergy Relief) 1 spray intranasal Q12H omeprazole 20 mg PO DAILY 90 days peg 3350-electrolytes 236-22.74-6.74 -5.86 gram (Golytely) 240 mL PO Q10M tizanidine 2 mg PO BEDTIME PRN 30 days triamcinolone acetonide 0.1% 1 appl topical BID-TID zinc gluconate 50 mg PO DAILY Do you need a note to return to daycare/school/sports/work: No HPI HPI Comments History of Present Illness Details History of Present Illness The patient is a 73-year-old male presenting with cracking and bleeding of the RIGHT hand pinky finger. The patient reports that this condition has persisted for the last three months. He was previously treated for dermatitis in July, which was diagnosed as atopic dermatitis two years ago after a series of tests. He has been managing the dermatitis with a steroid cream mixed with CeraVe and an antihistamine, Fexofenadine, for pruritus. The current issue began approximately two months ago, with the development of cracks on the middle finger and pinky, which have since worsened, causing pus and bleeding. The patient notes difficulty bending the finger and severe stinging pain, and that the episodic dry weather exacerbates the symptoms. The patient has been soaking the finger in water but has not used Epsom salt. He recalls a fretted instrument repairer appointment where the condition was noted but received no significant change in management. Therefore, he is scheduled to see the fretted instrument repairer on April 04, 2021. Reports he was offered sooner appt but declined. Social History - The patient is and has familial responsibilities, including taking care of his 's appointments. Discussion Notes I discussed with the patient that the current skin condition, especially concerning the finger, requires immediate attention. We agreed on initiating treatment with doxycycline for the infection. Additionally, I explained the importance of consulting dermatology for further management of atopic dermatitis. The risks of delaying care, in particular, the possibility of worsening infection and potential for more systemic involvement, were communicated. I emphasized the necessity of keeping the affected area clean and dry and the need to cover it with an appropriate bandage. I assured him that photos of the condition would be sent to dermatology, facilitating expedited care for his finger. The patient understands and acknowledges the plan and agreed to follow-up inquiries to adjust the plan as necessary. Patient Instructions - Take doxycycline as prescribed: one tablet twice a day for seven days. - Apply a regular bandage to the affected finger, ensuring it remains dry. - Use antibacterial soap, carefully wash and dry the finger before bandaging. - If the bandage becomes wet, replace it immediately. - Do not soak the finger in water. - Await further instructions regarding dermatology appointment. A call will be placed today to get you in sooner. I advised that if he does not follow through on instructions he could have adverse outcomes, specifically loss of use, function or limb. He states he cannot go to [facility] today or tomorrow, the soonest is Wednesday. he is aware and accepting of these risks. My office contacted [facility] and have arranged an appointment for this Wednesday. My office note will be faxed over. Patient was called and advised to follow up as directed. Plan - Initiate doxycycline for seven days to address the secondary skin infection on the left pinky finger. - Contact dermatology to expedite the patient's appointment. - Continue current topical treatments for atopic dermatitis and evaluate further dermatological input. - Advise the patient to maintain proper hygiene and bandaging of the affected area. - Monitor response to antibiotics and reassess if symptoms worsen. Patient was informed and verbally consented to the use of an ambient scribe for clinic note documentation during this visit. Exam: right hand neurovasc intact, clear drainage from the skin, no fluctuance Total time spent caring for the patient today was 30 minutes. This includes time spent before the visit reviewing the chart, time spent during the visit, and time spent after the visit on documentation, reviewing laboratory results, diagnostic imaging, medications, performing a medically necessary evaluation, counseling on diagnoses, care coordination, ordering appropriate tests, ordering appropriate medications, review of tests performed by other providers, reporting test results with the patient, communication with other healthcare providers. [facility] Medical History Eczema Neuropathy GERD (gastroesophageal reflux disease) Back disorder Osteoporosis Arthritis Diabetes Sinusitis Surgical History History of tonsillectomy Social History Housing: House Alcohol intake: current Alcohol intake frequency: a few times a week Patient Tobacco Use Status: Never used Tobacco e-Cigarette/Vaping Use: Never Used service: Yes Current occupational status: retired Cognitive needs: No Hearing needs: No Vision needs: Yes Physical Exam Vital Signs: Last Vital Signs Temp 97.5 F 03/27/24 08:42 Pulse 72 03/27/24 08:42 Resp 13 03/27/24 08:42 BP 124/68 03/27/24 08:42 Pulse Ox 96 03/27/24 08:42 Oxygen Delivery Method Room Air 03/27/24 08:42 BMI result Body Mass Index 39.2 Assessment & Plan Assessment & Plan (1) Cellulitis: Code(s): L03.90 - Cellulitis, unspecified Qualifiers: Site of cellulitis: extremity Site of cellulitis of extremity: upper extremity Laterality: right Qualified Code(s): L03.113 - Cellulitis of right upper limb (2) Atopic dermatitis: Code(s): L20.9 - Atopic dermatitis, unspecified Qualifiers: Atopic dermatitis type: other Qualified Code(s): L20.89 - Other atopic dermatitis Plan . Medications: New doxycycline hyclate 100 mg PO BID 14 caps 0RF 7 days Coding Level of Care Code Est Pt Level 4 (12610) Diagnoses Cellulitis of right upper extremity L03.113 Site of cellulitis: extremity Site of cellulitis of extremity: upper extremity Laterality: right Other atopic dermatitis L20.89 Atopic dermatitis type: other
[2024-03-27 08:42] VITALS: BP 124/68; PULSE 72; RESP 13; TEMP 36.4; O2SAT 96; BMI 39.2
== END 2024-03-27 09:45 | disposition home or self-care (01) ==
PROVIDERS: PCP Family Medicine; Visit Provider Nurse Practitioner Family
DX: L03.113 Cellulitis of right upper limb (principal); L20.89 Other atopic dermatitis

== ENCOUNTER 2024-03-31 10:12 | Outpatient (AMB) | payer OTHER, SELFPAY ==
--- NOTE | 2024-03-31 10:33 | A.OFFPC_ITS ---
Vital Signs 3 03/31/24 10:38 03/31/24 10:44 Height 5 ft 7 in Weight 247 lb BMI 38.7 BP 150/72 H 120/70 Blood Pressure Location Lt brachial Lt brachial Position Sitting Sitting Pulse 78 Pulse Source Pulse Oximeter Temp 98.3 F Temp Source Oral Pulse Oximetry (%) 95 Oxygen Delivery Method Room Air Intake Visit Reasons: Infected Finger Intake Note: Infected finger right pinky finger. Was seen on Wednesday at the walk-in. Has two days left of antibiotic. Has been using bacitracin. Finger was purple this morning, and puss. Machine Repairer Maintenance Required: No Allergies Seasonal Allergies Allergy (Intermediate, Verified 03/31/24 10:37) Itchy Eyes Tobacco use date assessed: 05/20/23 Dental Screening Dental Screen Date: 05/20/23 HPI HPI Comments 2 History of Present Illness0 Details 73 y/o with atopic dermatitis presenting with infected right pointer finger. Seen 03/27 by a colleague for this and placed on doxycycline at the time Reports no interval improvement but no worsening. It is painful and difficult to flex at the distal joints. Has dermatology in 4 days Noted on 03/27 The patient reports that this condition has persisted for the last three months. He was previously treated for dermatitis in July, which was diagnosed as atopic dermatitis two years ago after a series of tests. He has been managing the dermatitis with a steroid cream mixed with CeraVe and an antihistamine, Fexofenadine, for pruritus. The current issue began approximately two months ago, with the development of cracks on the middle finger and pinky, which have since worsened, causing pus and bleeding. The patient notes difficulty bending the finger and severe stinging pain, and that the episodic dry weather exacerbates the symptoms. The patient has been soaking the finger in water but has not used Epsom salt. He recalls a supervisor wood crew appointment where the condition was noted but received no significant change in management. Therefore, he is scheduled to see the supervisor wood crew on April 04, 2021. Reports he was offered sooner appt but declined. Picture reviewed from 03/27 appt and exam is stable Exam (no changes): right hand neurovasc intact, clear drainage from the skin, no fluctuance [facility] Medical History Eczema Neuropathy GERD (gastroesophageal reflux disease) Back disorder Osteoporosis Arthritis Diabetes Sinusitis Surgical History History of tonsillectomy Social History (Updated 03/31/24 @ 10:44 by Starr Griffin CMA) Housing: House Alcohol intake: current Alcohol intake frequency: a few times a week Patient Tobacco Use Status: Never used Tobacco e-Cigarette/Vaping Use: Never Used service: Yes Current occupational status: retired Cognitive needs: No Hearing needs: No Vision needs: Yes Questionnaire PHQ-9 Over the last 2 weeks, how often have you been bothered by any of the following problems? 1. Little interest or pleasure in doing things: not at all 2. Feeling down, depressed, or hopeless: not at all Source: Developed by Drs. Tariq Casey, Annika Cabral, Jigar Hill and colleagues, with an educational alfonso from [employer]. Thrive Questionnaire Date Thrive assessed: 05/20/23 PATIENCE-7 AMB Questionnaire PATIENCE-7 Date PATIENCE - 7 assessed: 05/20/23 Source: Developed by Drs. Tariq Casey, Annika Cabral, Jigar Hill and colleagues, with an educational alfonso from [employer]. Physical exam (Primary Care) Vital Signs: Last Vital Signs Temp 98.3 F 03/31/24 10:38 Pulse 78 03/31/24 10:38 BP 120/70 03/31/24 10:44 Pulse Ox 95 03/31/24 10:38 Oxygen Delivery Method Room Air 03/31/24 10:38 BMI result Body Mass Index 38.7 Tobacco/Smoking Status: Tobacco use Status Tobacco use date assessed 05/20/23 03/31/24 10:34 Patient Tobacco Use Status Never used Tobacco 03/31/24 10:44 e-Cigarette/Vaping Use Never Used 03/31/24 10:44 Thrive Assessment: Date of Thrive Assessment Date Thrive assessed 05/20/23 03/31/24 10:34 Coding Level of Care Code Est Pt Level 4 (01142) Diagnoses Cellulitis of right finger L03.011 Assessment & Plan Assessment & Plan (1) Cellulitis of right finger: Code(s): L03.011 - Cellulitis of right finger Category: Medical Plan: Add cephalexin. Continue the 3 remaining days of doxycycline Add oral steroids to improve underlying skin condition Advise avoidance of latex and harsh cleansing products. keep the finger clean and dry. Follow up with dermatology Wednesday. If no improvement may need to see hand surgeon. Nothing drainable on exam today Will call if symptoms worsen Medications: New 2 prednisone 40 mg (2 x 20 mg) PO DAILY 10 tabs 0RF 5 days cephalexin 500 mg PO QID 28 tabs 0RF 7 days
[2024-03-31 10:38] VITALS: BP 150/72; PULSE 78; TEMP 36.8; O2SAT 95; BMI 38.7
[2024-03-31 10:44] VITALS: BP 120/70
== END 2024-03-31 11:22 | disposition home or self-care (01) ==
PROVIDERS: PCP Family Medicine; Visit Provider Internal Medicine
DX: L03.011 Cellulitis of right finger (principal)

== ENCOUNTER 2024-06-14 09:31 | Outpatient (AMB) | payer OTHER, SELFPAY ==
--- NOTE | 2024-06-14 09:32 | AM.OFFWIN_ITS ---
Intake Vital Signs 3 06/14/24 09:38 Height 5 ft 7 in Weight 250 lb 8 oz BMI 39.2 BP 124/72 Blood Pressure Location Lt brachial Position Sitting Respiration 13 Pulse 76 Pulse Source Pulse Oximeter Temp 97.6 F Temp Source Oral Pulse Oximetry (%) 98 Oxygen Delivery Method Room Air Intake Visit Reasons: right hand/finger infection? Intake Note: Patient c/o right hand index finger skin peeling off and sensitive to touch. Patient Tobacco Use Status: Never used Tobacco Hand Cloth Examiner Required: No Allergies Seasonal Allergies Allergy (Intermediate, Verified 06/14/24 09:48) Itchy Eyes Medication List - Last Reconciled 06/14/24 by Maeve Napoles, [employer]-BC ascorbic acid (vitamin C) mg PO cetirizine (Zyrtec) 10 mg PO DAILY 30 days cholecalciferol (vitamin D3) 50 mcg PO DAILY curcumin-phosphatidylcholine mg PO cyanocobalamin (vitamin B-12) 1,000 mcg PO DAILY 90 days docusate sodium 100 mg PO BID fexofenadine 180 mg PO BID fluticasone propionate 50 mcg/actuation (Flonase Allergy Relief) 1 spray intranasal Q12H omeprazole 20 mg PO DAILY 90 days peg 3350-electrolytes 236-22.74-6.74 -5.86 gram (Golytely) 240 mL PO Q10M tacrolimus 0.1% 1 appl topical BID tizanidine 2 mg PO BEDTIME PRN 30 days triamcinolone acetonide 0.1% 1 appl topical BID-TID triamcinolone acetonide 0.1% 1 appl topical DAILY zinc gluconate 50 mg PO DAILY Do you need a note to return to daycare/school/sports/work: No HPI HPI Comments 2 History of Present Illness0 Details 73 y/o M with atopic dermatitis, ff'd by [facility], here today for redness and drying of the skin that is sensitive to touch for the last 8 weeks. Uses tacrolimus and trimacinolone several times per day. He has been seen here for issues related to his atopic derm several times Last 2 notes from Mar and Apr reviewed Recommendation to start Dupixent States he cannot afford this & does not like needles. He denies any fever, chills, drainage. Admits to excessive hand washing; uses bandaids to cover Exam: Right hand neurovasc intact; Right middle finger see below. No fluctulance, excessive warmth to suggest infection. Plan: Asked this note be faxed to [facility] as he needs further mgmt for this; frequent use of walk in for this. Start prednisone taper; avoid topical steroid only when using oral prednisone then ok to resume under guidance from Derm Use dish gloves when doing dishes Avoid harsh and caustic topicals and exposures; avoid excessive handwashing Observe for s/sx of infection Need to f/u with Derm for this chronic issue Recommend close interim fu in this office in 1 week if not able to get into Derm Total time spent caring for the patient today was [] minutes. This includes time spent before the visit reviewing the chart, time spent during the visit, and time spent after the visit on documentation, reviewing laboratory results, diagnostic imaging, medications, performing a medically necessary evaluation, counseling on diagnoses, care coordination, ordering appropriate tests, ordering appropriate medications, review of tests performed by other providers, reporting test results with the patient, communication with other healthcare providers. [facility] Medical History Eczema Neuropathy GERD (gastroesophageal reflux disease) Back disorder Osteoporosis Arthritis Diabetes Sinusitis Surgical History History of tonsillectomy Social History (Updated 04/07/24 @ 09:27 by Starr Griffin CMA) Housing: House Alcohol intake: current Alcohol intake frequency: a few times a week Patient Tobacco Use Status: Never used Tobacco e-Cigarette/Vaping Use: Never Used service: Yes Current occupational status: retired Cognitive needs: No Hearing needs: No Vision needs: Yes Physical Exam Vital Signs: Last Vital Signs Temp 97.6 F 06/14/24 09:38 Pulse 76 06/14/24 09:38 Resp 13 06/14/24 09:38 BP 124/72 06/14/24 09:38 Pulse Ox 98 06/14/24 09:38 Oxygen Delivery Method Room Air 06/14/24 09:38 BMI result Body Mass Index 39.2 Assessment & Plan Assessment & Plan (1) Atopic dermatitis: Code(s): L20.9 - Atopic dermatitis, unspecified Qualifiers: Atopic dermatitis type: other Qualified Code(s): L20.89 - Other atopic dermatitis Plan . Medications: New 2 prednisone see taper instructions 10 mg PO DIRECTED 21 ea 0RF Coding Level of Care Code Est Pt Level 4 (89026) Diagnoses Other atopic dermatitis L20.89 Atopic dermatitis type: other
[2024-06-14 09:38] VITALS: BP 124/72; PULSE 76; RESP 13; TEMP 36.4; O2SAT 98; BMI 39.2
== END 2024-06-14 10:05 | disposition home or self-care (01) ==
LOC: HO.HMCFM 09:31
PROVIDERS: PCP Family Medicine; Visit Provider Nurse Practitioner Family
DX: L20.89 Other atopic dermatitis (principal)

== ENCOUNTER → 2024-06-14 09:31 | Outpatient (BNVA) | payer OTHER, SELFPAY | PROVIDERS: PCP Family Medicine; Visit Provider Nurse Practitioner Family ==

== ENCOUNTER 2024-07-06 07:55 | Outpatient (REF) | payer OTHER, SELFPAY ==
[2024-07-06 11:25] LABS: MANUAL DIFF FLAG NO
[2024-07-06 11:41] LABS: Basophils Absolute Auto 0.1 X10*3/uL (0.0-0.2); Basophils Percent Auto 0.8 % (0-2); Eosinophils Absolute Auto 0.2 X10*3/uL (0.0-0.4); Eosinophils Percent Auto 3.3 % (0-4); Hematocrit 41.3 % (42.0-52.0); Hemoglobin 13.4 g/dl (14.0-18.0); Imm Gran Abs Auto 0.02 X10*3/uL (0.00-0.03); Imm Gran Pct Auto 0.3 % (0.0-0.4); Lymphocytes Absolute Auto 1.8 X10*3/uL (1.2-4.9); Mean Corpuscular HGB Conc 32.4 g/dl (31.0-36.0); Mean Corpuscular Hemoglobin 27.9 pg (27.0-33.0); Mean Corpuscular Volume 85.9 fL (80.0-98.0); Mean Platelet Volume 11.4 fL (9.4-12.4); Monocytes Absolute Auto 0.7 X10*3/uL (0.1-1.2); Monocytes Percent Auto 8.9 % (2-11); Neutrophils Absolute Auto 4.6 x10*3/uL (2.0-8.3); Neutrophils Percent Auto 62.7 % (45-73); Platelet Count 223 X10*3/uL (160-400); Red Blood Count 4.81 X10*6/uL (4.60-5.80); Red Cell Distribution Width 14.1 % (11.0-16.0); White Blood Count 7.4 X10*3/uL (4.8-10.8)
[2024-07-06 11:58] LABS: Appearance Urine Clear; Color Urine Yellow; Glucose Urine UA Negative (Negative); Leukocyte Esterase Urine Trace (Negative); Nitrite Urine Negative (Negative); UMIC TRIGGER UA YES; Urine Blood Negative (Negative); Urine Ketones Negative (Negative); Urine Protein Negative (Neg-Trace)
[2024-07-06 12:02] LABS: Alanine Aminotransferase 21 U/L (0-40); Alkaline Phosphatase 69 U/L (39-117); Anion Gap 9 (12-20); Aspartate Amino Transferase 26 U/L (5-37); Bilirubin Total 0.5 mg/dL (0.0-1.0); Blood Urea Nitrogen 14 mg/dL (9-16); Calcium 9.3 mg/dL (8.4-10.2); Carbon Dioxide 30 mmol/L (22-29); Chloride 104 mmol/L (96-108); Cholesterol 177 mg/dL (<200); Estimated Glomerular Filt Rate > 60; Glucose Fasting 117 mg/dL (60-99); HDL Cholesterol 49 mg/dL (>40); LDL Cholesterol Calculated 112 mg/dL (<100); Potassium 4.2 mmol/L (3.3-5.1); Sodium 139 mmol/L (135-145); Total Protein 6.8 g/dL (6.5-8.0); Triglycerides 81 mg/dL (<150)
[2024-07-06 12:03] LABS: Bacteria Urine None Seen (None Seen); Hyaline Casts Urine 0-2 /LPF (0-2); RBC Urine 0-2 /HPF (0-2); Squamous Epithelial Cell Urine 0-2 /HPF (0-2); WBC Urine 0-5 /HPF (0-5)
[2024-07-06 12:14] LABS: Prostate Specific Antigen Scr 2.35 ng/mL (<0.05-4.0)
[2024-07-06 12:21] LABS: TSH reflex Free T4 1.21 uIU/mL (0.32-4.0)
[2024-07-06 13:07] LABS: Creatinine Urine 50.15 mg/dL; Microalbumin Urine < 5.0 mg/L
== END 2024-07-06 07:56 | disposition home or self-care (01) ==
LOC: HO.WFDLDS 07:55
PROVIDERS: Visit Provider Family Medicine
DX: Z00.00 Encounter for general adult medical examination without abnormal findings (principal); I10 Essential (primary) hypertension; Z12.5 Encounter for screening for malignant neoplasm of prostate
CPT/HCPCS: 36415; 80053; 80061; 81001; 81003; 82043; 82570; 84153; 84443; 85025

== ENCOUNTER 2024-07-11 08:25 | Outpatient (AMB) | payer OTHER, SELFPAY ==
--- NOTE | 2024-07-11 08:34 | MHC.PC.OV ---
Vital Signs 07/11/24 08:47 Height 5 ft 7 in Weight 249 lb BMI 39.0 BP 120/60 Blood Pressure Location Lt brachial Position Sitting Respiration 16 Pulse 71 Pulse Source Pulse Oximeter Temp 98.1 F Temp Source Oral Pulse Oximetry (%) 97 Oxygen Delivery Method Room Air Intake Visit Reasons: f/u neuropathy Intake Note: patient is scheduled to follow up for neuropathy Retail Key Holder Required: No Allergies Seasonal Allergies Allergy (Intermediate, Verified 07/11/24 08:38) Itchy Eyes Medication List - Last Reconciled 07/11/24 by Rogelio Marin MD ascorbic acid (vitamin C) mg PO cholecalciferol (vitamin D3) 50 mcg PO DAILY curcumin-phosphatidylcholine mg PO cyanocobalamin (vitamin B-12) 1,000 mcg PO DAILY 90 days docusate sodium 100 mg PO BID fexofenadine 180 mg PO BID fluticasone propionate 50 mcg/actuation (Flonase Allergy Relief) 1 spray intranasal Q12H omeprazole 20 mg PO DAILY 90 days peg 3350-electrolytes 236-22.74-6.74 -5.86 gram (Golytely) 240 mL PO Q10M tacrolimus 0.1% 1 appl topical BID triamcinolone acetonide 0.1% 1 appl topical BID-TID triamcinolone acetonide 0.1% 1 appl topical DAILY zinc gluconate 50 mg PO DAILY Tobacco use date assessed: 05/20/23 Fall risk assessment: No Falls in past year Last assessed Fall Risk: 07/11/24 Dental Screening Dental Screen Date: 05/20/23 HPI f/u neuropathy HPI Details 73 y/o male presents to f/u diabetes, neuropathy. A1c today 07/11/24 6.1%. Pt reports ongoing neuropathy of feet, more L and sometimes R. He notes gabapentin, lyrica does not work and has only been taking vitamin B-12 supplements. Symptoms started last year. Has noted neuropathy improved with prednisone that was prescribed for atopic dermatitis. He also reports low back pain. [facility] Medical History Eczema Neuropathy GERD (gastroesophageal reflux disease) Back disorder Osteoporosis Arthritis Diabetes Sinusitis Surgical History History of tonsillectomy Social History (Updated 04/07/24 @ 09:27 by Starr Griffin CMA) Housing: House Alcohol intake: current Alcohol intake frequency: a few times a week Patient Tobacco Use Status: Never used Tobacco e-Cigarette/Vaping Use: Never Used service: Yes Current occupational status: retired Cognitive needs: No Hearing needs: No Vision needs: Yes Questionnaire Thrive Questionnaire Date Thrive assessed: 04/07/24 I am a: Patient What is your living situation today?: I choose not to answer this question Within the past 12 months, did the food you bought not last and you didn't have the money to get more?: I choose not to answer this question Within the past 12 months, did you worry whether your food would run out before you got money to buy more?: I choose not to answer this question Do you have trouble paying for medicines?: I choose not to answer this question Do you have trouble getting transportation to medical appointments?: No Do you have trouble paying your heating and electricity bill?: I choose not to answer this question Do you have trouble taking care of your child, family member or friend?: I choose not to answer this question Do you have trouble with day-to-day activities such as bathing, preparing meals, shopping, managing finances, etc.?: I choose not to answer this question Are you currently unemployed and looking for a job?: I choose not to answer this question Are you interested in more education?: I choose not to answer this question Please select the resources that you would like help with: None Currently or been in a relationship where the following occur: I choose not to answer THRIVE Score: 0 PATIENCE-7 AMB Questionnaire PATIENCE-7 Date PATIENCE - 7 assessed: 05/20/23 Source: Developed by Drs. Tariq Casey, Annika Cabral, Jigar Hill and colleagues, with an educational alfonos from [employer]. Review of Systems Const Denies chills, Denies fatigue, Denies fever(s), Denies headache(s) and Denies weakness ENT Denies dizziness and Denies headache(s) Card Denies dyspnea Resp Denies cough, Denies dyspnea, Denies wheezing and Denies other (shortness of breath) Musc Denies numbness and Denies tingling Neuro Denies dizziness, Denies headache(s), Denies numbness, Denies tingling and Denies weakness Psych Denies anxiety and Denies depression Endo Denies fatigue Aller/Immun Denies wheezing Physical exam (Primary Care) Vital Signs: Last Vital Signs Temp 98.1 F 07/11/24 08:47 Pulse 71 07/11/24 08:47 Resp 16 07/11/24 08:47 BP 120/60 07/11/24 08:47 Pulse Ox 97 07/11/24 08:47 Oxygen Delivery Method Room Air 07/11/24 08:47 BMI result Body Mass Index 39.0 Tobacco/Smoking Status: Tobacco use Status Tobacco use date assessed 05/20/23 07/11/24 08:35 Patient Tobacco Use Status Never used Tobacco 07/11/24 08:35 e-Cigarette/Vaping Use Never Used 07/11/24 08:35 Thrive Assessment: Date of Thrive Assessment Date Thrive assessed 04/07/24 07/11/24 08:35 Currently or been in a relationship where the following occur: I choose not to answer Const General: well developed; No acute distress Nutritional Appearance: well nourished Orientation/consciousness: patient oriented [facility]3 [facility]: Yes normocephalic and Yes atraumatic Eyes General: appearance normal, both eyes and all related structures Pupils: Equal, round and reactive pupils present EOM: EOMs intact bilaterally Resp Effort & Inspection: normal respiratory effort Neuro General: patient oriented x3 and gait normal Cranial nerves: Yes Equal, round and reactive pupils present Psych Affect: normal affect Coding Level of Care Code Est Pt Level 5 (22509) Diagnoses Neuropathy G62.9 Other atopic dermatitis L20.89 Atopic dermatitis type: other Diabetes E11.9 Lumbar radiculopathy M54.16 Assessment & Plan Assessment & Plan (1) Neuropathy: Code(s): G62.9 - Polyneuropathy, unspecified Category: Medical Plan: Ongoing assymettric LE Neuropathy L worse than R Low back pain after distant injury 2011 Improved w/ prednisone that was prescribed for atopic dermatitis Had referred him to Neurology however?he?has?not?made?an?appointment.??We?had?discussed?imaging?as?well. He?is?declining?these?for?right?now?but?will?discuss?with?me?again?at?next?visit We?will?try?some?physical?therapy?for?lumbar?radicular?symptoms?with?some?left-sided?weakness (2) Atopic dermatitis: Code(s): L20.9 - Atopic dermatitis, unspecified Category: Medical Qualifiers: Atopic dermatitis type: other Qualified Code(s): L20.89 - Other atopic dermatitis Plan: Atopic?dermatitis?bilateral?hands?and?fingers Treated?with?primarily?topicals?but?also?with?oral?prednisone?at?times. Currently?appears?fairly?well?controlled Continue?topical regimen. Follow-up?with?dermatology?as?recommended (3) Diabetes: Code(s): E11.9 - Type 2 diabetes mellitus without complications Category: Medical Plan: A1c?6.1%.??Goal?is?less?than?7.0% Good?control Continue?diet-control Encouraged?weight?loss?and?exercise (4) Lumbar radiculopathy: Code(s): M54.16 - Radiculopathy, lumbar region Category: Medical Plan: As?above,?patient?appears?to?have?left-sided?lumbar?radiculopathy?and?possibly?some?right-sided?symptoms?beginning. Start?physical?therapy Will?discuss?possible?imaging?or referral?to?neurology?at?next?visit
[2024-07-11 08:47] VITALS: BP 120/60; PULSE 71; RESP 16; TEMP 36.7; O2SAT 97; BMI 39.0
== END 2024-07-11 10:52 | disposition home or self-care (01) ==
LOC: HO.HMCFM 08:26
PROVIDERS: PCP Family Medicine; Visit Provider Family Medicine
DX: E11.40 Type 2 diabetes mellitus with diabetic neuropathy, unspecified (principal); L20.89 Other atopic dermatitis; M54.16 Radiculopathy, lumbar region

== ENCOUNTER → 2024-07-11 08:25 | Outpatient (BNVA) | payer OTHER, SELFPAY | PROVIDERS: PCP Family Medicine; Visit Provider Family Medicine | DX: Z13.89 Encounter for screening for other disorder (principal) ==

== ENCOUNTER 2024-09-11 09:38 | Outpatient (AMB) | payer OTHER, SELFPAY ==
--- NOTE | 2024-09-11 09:42 | MHC.PC.OV ---
Vital Signs 09/11/24 09:55 Height 5 ft 7 in Weight 250 lb 2 oz BMI 39.2 BP 132/72 Blood Pressure Location Lt brachial Position Sitting Respiration 12 Pulse 96 Pulse Source Pulse Oximeter Temp 97.1 F Temp Source Oral Pulse Oximetry (%) 98 Oxygen Delivery Method Room Air Intake Visit Reasons: infected finger /stomach pain Intake Note: Patient c/o left hand pointer finger infected finger and went into [facility] urgent care last Wednesday and after starting Cephalexin he develop severe abd px. Patient states he stopped all meds last because of cephalexin reaction. Patient also c/o left side px. Direct Care Specialist Required: No Allergies Seasonal Allergies Allergy (Intermediate, Verified 09/11/24 10:12) Itchy Eyes Medication List - Last Reconciled 09/11/24 by JOCELYN Rocha-BC ascorbic acid (vitamin C) mg PO cholecalciferol (vitamin D3) 50 mcg PO DAILY curcumin-phosphatidylcholine mg PO cyanocobalamin (vitamin B-12) 1,000 mcg PO DAILY 90 days docusate sodium 100 mg PO BID fexofenadine 180 mg PO BID fluticasone propionate 50 mcg/actuation (Flonase Allergy Relief) 1 spray intranasal Q12H omeprazole 20 mg PO DAILY 90 days peg 3350-electrolytes 236-22.74-6.74 -5.86 gram (Golytely) 240 mL PO Q10M tacrolimus 0.1% 1 appl topical BID triamcinolone acetonide 0.1% 1 appl topical BID-TID triamcinolone acetonide 0.1% 1 appl topical DAILY zinc gluconate 50 mg PO DAILY Tobacco use date assessed: 09/11/24 Fall risk assessment: No Falls in past year Last assessed Fall Risk: 09/11/24 Dental Screening Dental Screen Date: 09/11/24 Did you have a dental visit in the last 12 months?: Yes Did you have a dental problem in the last 6 months where you did not have access to dental care?: No Was dental information given to patient?: Patient has dentist HPI HPI Comments History of Present Illness Details History of Present Illness Went to walk in 09/01/24 for cellulitis of L index finger; a recurring problem for him given his ectopic derm which is managed by Derm He was given cephalexin 500mg QID and started to take Shortly after, developed lower abd pain and diarrhea He took this medication until Wednesday and stopped. In addition, he stopped taking his vitamins/supplements and held PO intake of food and fluid. This resulted in improvement. No BM until today, which was normal. Lower abd pain is improved but he now has pain in his L flank area that comes and goes. He wonders if he needs any ABT for his finger which he reports is improved but cont w/ a split in the skin and funny sensation in the joint Denies fever, chills, n/v, blood in stool, urinary complaints. Physical Exam General: Well developed, well nourished, in no acute distress. Appears stated age. Head: Normocephalic, atraumatic. Eyes: Pupils are equal, round and reactive to light and accommodation, scleras nonicteric bilat Lungs: Clear to auscultation bilaterally. No rales, rhonchi or wheeze noted. Good air flow in all bhandari. Heart: Regular rate and rhythm. No murmurs, click, rubs or gallops are noted. Abdomen: Bowel sounds present in all quadrants. The abdomen is soft, nontender, with no masses or organomegaly noted. No hernias are noted. Mild pain in L flank but does not represent CVAT, seems more localized. The skin is clear in this area. ? more musculoskelatal. L index finger with superficial break in the skin over the PIP joint w/ ectopic dermatitis w/o infection or drainage. L hand neurovasc intact Plan: KUB UA CC Topical hydration to L finger and check Xray Do not think needs ABT I will fu with him via portal w/ results Edu on reasons to seek add'l care or RTO Of note he says he feels so much better and may not pursue any of this. Consent Patient was informed and verbally consented to the use of an ambient scribe for clinic note documentation during this visit. Total time spent caring for the patient today was 40 minutes. This includes time spent before the visit reviewing the chart, time spent during the visit, and time spent after the visit on documentation, reviewing laboratory results, diagnostic imaging, medications, performing a medically necessary evaluation, counseling on diagnoses, care coordination, ordering appropriate tests, ordering appropriate medications, review of tests performed by other providers, reporting test results with the patient, communication with other healthcare providers. [facility] Medical History (Updated 09/11/24 @ 10:22 by Maeve Napoles, [facility]) Arthritis Back disorder Diabetes Eczema GERD (gastroesophageal reflux disease) Neuropathy Osteoporosis Sinusitis Surgical History History of tonsillectomy Social History (Updated 04/07/24 @ 09:27 by Starr Griffin CMA) Housing: House Alcohol intake: current Alcohol intake frequency: a few times a week Patient Tobacco Use Status: Never used Tobacco e-Cigarette/Vaping Use: Never Used service: Yes Current occupational status: retired Cognitive needs: No Hearing needs: No Vision needs: Yes Questionnaire PHQ-9 Over the last 2 weeks, how often have you been bothered by any of the following problems? 1. Little interest or pleasure in doing things: not at all 2. Feeling down, depressed, or hopeless: not at all 3. Trouble falling or staying asleep, or sleeping too much: not at all 4. Feeling tired or having little energy: not at all 5. Poor appetite or overeating: not at all 6. Feeling bad about yourself - or that you are a failure or have let yourself or your family down: not at all 7. Trouble concentrating on things, such as reading the newspaper or watching television: not at all 8. Moving or speaking so slowly that other people could have noticed. Or the opposite - being so fidgety or restless that you have been moving around a lot more than usual: not at all 9. Thoughts that you would be better off or of hurting yourself in some way: not at all Total score: 0 Depression Screening Interpretation: Negative Depression Screening Done: Yes 31098 - PHQ-9 Billing: Yes Source: Developed by Drs. Tariq Casey, Annika Cabral, Jigar Hill and colleagues, with an educational alfonso from [employer]. Thrive Questionnaire Date Thrive assessed: 09/11/24 I am a: Patient What is your living situation today?: I choose not to answer this question Within the past 12 months, did the food you bought not last and you didn't have the money to get more?: I choose not to answer this question Within the past 12 months, did you worry whether your food would run out before you got money to buy more?: I choose not to answer this question Do you have trouble paying for medicines?: I choose not to answer this question Do you have trouble getting transportation to medical appointments?: No Do you have trouble paying your heating and electricity bill?: I choose not to answer this question Do you have trouble taking care of your child, family member or friend?: I choose not to answer this question Do you have trouble with day-to-day activities such as bathing, preparing meals, shopping, managing finances, etc.?: I choose not to answer this question Are you currently unemployed and looking for a job?: I choose not to answer this question Are you interested in more education?: I choose not to answer this question Please select the resources that you would like help with: None Currently or been in a relationship where the following occur: I choose not to answer THRIVE Score: 0 PATIENCE-7 AMB Questionnaire PATIENCE-7 Date PATIENCE - 7 assessed: 09/11/24 Feeling nervous, anxious, or on edge: 0 = Not at all Not being able to stop or control worryin = Not at all Worrying too much about different things: 0 = Not at all Trouble relaxin = Not at all Being so restless that it is hard to sit still: 0 = Not at all Becoming easily annoyed or irritable: 0 = Not at all Feeling afraid as if something awful might happen: 0 = Not at all Total PATIENCE-7 score (0-4 normal; 5-9 mild; 10-14 moderate; 15-21 severe): 0 Source: Developed by Drs. Tariq Casey, Annika Cabral, Jigar Hill and colleagues, with an educational alfonso from [employer]. PATIENCE-7 Assessment Billing PATIENCE-7 Assessment Tool: PATIENCE-7 Assessment 60585 Physical exam (Primary Care) Vital Signs: Last Vital Signs Temp 97.1 F 09/11/24 09:55 Pulse 96 09/11/24 09:55 Resp 12 09/11/24 09:55 BP 132/72 09/11/24 09:55 Pulse Ox 98 09/11/24 09:55 Oxygen Delivery Method Room Air 09/11/24 09:55 BMI result Body Mass Index 39.2 Tobacco/Smoking Status: Tobacco use Status Tobacco use date assessed 09/11/24 09/11/24 09:45 Patient Tobacco Use Status Never used Tobacco 09/11/24 09:45 e-Cigarette/Vaping Use Never Used 09/11/24 09:45 PHQ-9: PHQ-9 Score PHQ-9: Total score 0 09/11/24 10:25 Depression Screening Interpretation: Negative Thrive Assessment: Date of Thrive Assessment Date Thrive assessed 09/11/24 09/11/24 09:45 Currently or been in a relationship where the following occur: I choose not to answer Coding Level of Care Code Est Pt Level 5 (63416) Complex EM visit Add On G2211 Diagnoses Left flank pain R10.9 Lower abdominal pain R10.30 Finger pain, left M79.645 Additional Codes PATIENCE-7 Assessment Billing - PATIENCE-7 Assessment Tool: PATIENCE-7 Assessment 63818 ([id number]) PHQ-9 - 44983 - PHQ-9 Billing: Yes ([id number]) Assessment & Plan Assessment & Plan (1) Left flank pain: Code(s): R10.9 - Unspecified abdominal pain Category: Medical (2) Lower abdominal pain: Code(s): R10.30 - Lower abdominal pain, unspecified Category: Medical (3) Finger pain, left: Code(s): M79.645 - Pain in left finger(s) Category: Medical Plan . Orders: Orders XR KUB Today R10.30 - Lower abdominal pain, unspecified, R10.9 - Unspecified abdominal pain UA CC w/rflx Micro + Cult Today R10.30 - Lower abdominal pain, unspecified, R10.9 - Unspecified abdominal pain, R30.0 - Dysuria XR finger LT min 2V Today M79.645 - Pain in left finger(s)
[2024-09-11 09:55] VITALS: BP 132/72; PULSE 96; RESP 12; TEMP 36.2; O2SAT 98; BMI 39.2
== END 2024-09-11 10:27 | disposition home or self-care (01) ==
LOC: HO.HMCFM 09:39
PROVIDERS: PCP Family Medicine; Visit Provider Nurse Practitioner Family
DX: R10.9 Unspecified abdominal pain (principal); R10.30 Lower abdominal pain, unspecified; M79.645 Pain in left finger(s)

== ENCOUNTER → 2024-09-11 09:38 | Outpatient (BNVA) | payer OTHER, SELFPAY | PROVIDERS: PCP Family Medicine; Visit Provider Nurse Practitioner Family | DX: R10.30 Lower abdominal pain, unspecified (principal); M79.645 Pain in left finger(s); Z13.31 Encounter for screening for depression; Z13.39 Encounter for screening examination for other mental health and behavioral disorders | CPT/HCPCS: 96127 ==

== ENCOUNTER 2024-10-03 10:02 | Outpatient (AMB) | payer OTHER, SELFPAY ==
--- NOTE | 2024-10-03 10:10 | MHC.PC.OV ---
Vital Signs 10/03/24 10:19 Height 5 ft 7 in Weight 264 lb BMI 41.3 BP 124/82 Blood Pressure Location Lt brachial Position Sitting Respiration 12 Pulse 83 Pulse Source Pulse Oximeter Temp 97.7 F Temp Source Temporal Artery Scan Pulse Oximetry (%) 95 Oxygen Delivery Method Room Air Intake Visit Reasons: Finger infected Intake Note: Farhad presents in the office for an infected left index finger. Allergies Seasonal Allergies Allergy (Intermediate, Verified 10/03/24 10:42) Itchy Eyes Medication List - Last Reconciled 10/03/24 by Vivian Aparicio CNP ascorbic acid (vitamin C) mg PO cholecalciferol (vitamin D3) 50 mcg PO DAILY curcumin-phosphatidylcholine mg PO cyanocobalamin (vitamin B-12) 1,000 mcg PO DAILY 90 days docusate sodium 100 mg PO BID magnesium 200 mg PO DAILY omeprazole 20 mg PO DAILY 90 days pyridoxine (vitamin B6) 50 mg PO DAILY selenium 100 mcg PO DAILY tacrolimus 0.1% 1 appl topical BID triamcinolone acetonide 0.1% 1 appl topical BID-TID triamcinolone acetonide 0.1% 1 appl topical DAILY zinc gluconate 50 mg PO DAILY Tobacco use date assessed: 10/03/24 Fall risk assessment: No Falls in past year Last assessed Fall Risk: 10/03/24 Dental Screening Dental Screen Date: 10/03/24 Did you have a dental visit in the last 12 months?: Yes Did you have a dental problem in the last 6 months where you did not have access to dental care?: No Was dental information given to patient?: Patient has dentist HPI HPI Comments History of Present Illness Details Patient presents with complaints of infection to his left index finger. The finger has been effected for the past 1 month. He was initially evaluated at [facility] urgent care in prescribed cephalexin which he had adverse reactions to. He follow-up with his PCP office and x-ray was ordered but he has not gotten x-ray done. He notes that the pain to his index finger has not subsided. He describes the pain as pressure to the PIP joint. He is able to bend and extend the finger. He has been taking Aleve 200 mg 4 times daily without relief. No fever, chills, body aches, weakness. [facility] Medical History (Updated 09/11/24 @ 10:22 by Maeve Napoles, HEALTH NAVIGATOR-) Eczema Neuropathy GERD (gastroesophageal reflux disease) Back disorder Osteoporosis Arthritis Diabetes Sinusitis Surgical History History of tonsillectomy Social History (Updated 10/03/24 @ 10:19 by Nery Vogel MA) Housing: House Alcohol intake: current Alcohol intake frequency: a few times a week Patient Tobacco Use Status: Never used Tobacco e-Cigarette/Vaping Use: Never Used Second Hand Smoke Exposure: No Use of substances other than those prescribed or required for medical reasons: No service: Yes Current occupational status: retired Cognitive needs: No Hearing needs: No Vision needs: Yes Questionnaire Thrive Questionnaire Date Thrive assessed: 04/07/24 I am a: Patient What is your living situation today?: I choose not to answer this question Within the past 12 months, did the food you bought not last and you didn't have the money to get more?: I choose not to answer this question Within the past 12 months, did you worry whether your food would run out before you got money to buy more?: I choose not to answer this question Do you have trouble paying for medicines?: I choose not to answer this question Do you have trouble getting transportation to medical appointments?: No Do you have trouble paying your heating and electricity bill?: I choose not to answer this question Do you have trouble taking care of your child, family member or friend?: I choose not to answer this question Do you have trouble with day-to-day activities such as bathing, preparing meals, shopping, managing finances, etc.?: I choose not to answer this question Are you currently unemployed and looking for a job?: I choose not to answer this question Are you interested in more education?: I choose not to answer this question Please select the resources that you would like help with: None Currently or been in a relationship where the following occur: I choose not to answer THRIVE Score: 0 PATIENCE-7 AMB Questionnaire PATIENCE-7 Date PATIENCE - 7 assessed: 09/11/24 Source: Developed by Drs. Tariq Casey, Annika Cabral, Jigar Hill and colleagues, with an educational alfonso from [employer] Review of Systems Const Details: Const Denies chills, Denies fatigue, Denies fever(s), Denies headache(s) and Denies weakness ENT Denies dizziness and Denies headache(s) Card Denies chest pain, Denies lightheadedness, Denies dyspnea and Denies other (Palpitations) Resp Denies cough, Denies dyspnea, Denies wheezing and Denies other ( shortness of breath) GI Denies abdominal pain, Denies melena, Denies hematochezia, Denies change in bowel habits, Denies dyspepsia and Denies nausea Denies hematuria and Denies dysuria Musc Reports as per HPI Skin/Breast Denies rash, Denies unusual bruising and Denies wounds Neuro Denies abnormal gait, Denies dizziness, Denies headache(s), Denies memory loss, Denies numbness, Denies Sensory deficit (Neuro), Denies tingling and Denies weakness Psych Denies anxiety, Denies depression, Denies memory loss Endo Denies cold intolerance, Denies fatigue, Denies heat intolerance, Denies polydipsia and Denies polyuria Aller/Immun Denies wheezing Physical exam (Primary Care) Vital Signs: Last Vital Signs Temp 97.7 F 10/03/24 10:19 Pulse 83 10/03/24 10:19 Resp 12 10/03/24 10:19 BP 124/82 10/03/24 10:19 Pulse Ox 95 10/03/24 10:19 Oxygen Delivery Method Room Air 10/03/24 10:19 BMI result Body Mass Index 41.3 Tobacco/Smoking Status: Tobacco use Status Tobacco use date assessed 10/03/24 10/03/24 10:22 Patient Tobacco Use Status Never used Tobacco 10/03/24 10:19 e-Cigarette/Vaping Use Never Used 10/03/24 10:19 Thrive Assessment: Date of Thrive Assessment Date Thrive assessed 04/07/24 10/03/24 10:11 Currently or been in a relationship where the following occur: I choose not to answer Const Other: General: no acute distress and well developed Nutritional Appearance: well nourished Orientation/consciousness: patient oriented x3 HENMT Head: Yes normocephalic and Yes atraumatic Eyes General: appearance normal, both eyes and all related structures Pupils: Equal, round and reactive pupils present EOM: EOMs intact bilaterally Resp Effort & Inspection: normal respiratory effort Auscultation: clear to auscultation bilaterally Cardio Rate: regular rate Rhythm: regular rhythm Heart sounds: S1 normal heart sound present, S2 normal heart sound present, no gallops, no murmurs and no rubs GI Palpation (GI): No Abdominal aortic bruit present, Soft to palpation, nontender, No hepatosplenomegaly present and No Rebound tenderness present Auscultation: normal bowel sounds General: Yes no CVA tenderness Back/Spine/Pelvis Back: no CVA tenderness Cervical Spine: cervical ROM normal and No Cervical spine tenderness Thoracic/Lumbar Spine: thoraco-lumbar ROM normal, No pain with thoraco-lumbar ROM, No thoracic spinal tenderness and No lumbar spinal tenderness Extrem Mild erythema and edema to the PIP of right index finger, mild tenderness to palpation, normal movement, no overt injury/trauma or infection Skin General: warm and dry. Normal skin color. Normal skin turgor Lesions: no lesions Rashes: no rashes Trauma: no lacerations or abrasions Wounds: no wounds Nails: normal Neuro General: patient oriented x3, gait normal and no focal neuro deficit Cranial nerves: Yes Equal, round and reactive pupils present Cognition (Neuro): normal cognition Gait exam (Neuro): Normal gait present Sensory Exam: No Sensory deficit (Neuro) Psych Appearance: grossly normal Affect: normal affect Attitude: cooperative Thought process: Normal thought process present Coding Level of Care Code Est Pt Level 4 (21420) Diagnoses Finger pain, left M79.645 Assessment & Plan Assessment & Plan (1) Finger pain, left: Code(s): M79.645 - Pain in left finger(s) Category: Medical Plan: Mild erythema and edema to the PIP of right index finger, mild tenderness to palpation, normal movement, no overt injury/trauma or infection. Encouraged to increase Aleve to 600 mg 3 times daily with food. Will check uric acid level. Encouraged to get x-ray of the left index finger done. Follow-up with worsening or new symptoms. Verbalized understanding and agreed with the plan. Orders: Orders Uric Acid Today M79.645 - Pain in left finger(s)
[2024-10-03 10:19] VITALS: BP 124/82; PULSE 83; RESP 12; TEMP 36.5; O2SAT 95; BMI 41.3
--- OUTSIDE RECORDS SUMMARY | 2024-10-03 10:36 | XMS_ITS ---
Author Name [facility] Organization Unknown Care Team Organization Name Specialty Phone Email Start Date End Da te [facility] Masha Marroquin MD Primary Care 01/06/2022 10/18/2023
--- OUTSIDE RECORDS SUMMARY | 2024-10-03 10:36 | XMS_ITS | Clinical Summary ---
Author Organization [facility] Address [address] [place] [phone] Phone Care Team Providers Care [employer] Name Role Phone Pcp, Unknown Primary Care Provider Unavailabl e Allergies No known active allergies Medications sodium chloride (LOUISE 128) 2 % ophthalmic solution Place 1 drop into each eye every 4 (four) hours. Active omeprazole (PRILOSEC) 20 MG tablet Take 20 mg by mouth daily. Active Family History Medical History Relation Comments Diabetes Mother Relation Status Comments Mother Social History Tobacco Use Types Packs/Day Years Used Date Smoking Tobacco: Never Smokeless Tobacco: Never Alcohol Use Standard Drinks/Week Comments Not Currently 0 (1 standard drink = 0.6 oz pur e alcohol) Education Answer Date Recorded Are you interested in more education? Not on ant e 07/09/2022 Are you concerned about learning? Not on file 07/09/2022 No 07/09/2022 No 07/09/2022 Digital Access Answer Date Recorded No 07/26/2022 No 07/26/2022 No 07/26/2022 Reliable internet access at home? Not on file 07/26/2022 Device with a working camera? Not on file Sex and Gender Information Value Date Recorded Sex Assigned at Not on file Legal Sex Male 6:56 PM EST Gender Identity Not on file Sexual Orientation Not on file Last Filed Vital Signs Vital Sign Reading Time Taken Comments Blood Pressure 120/80 09/29/2018 2:07 PM EDT Pulse 73 09/29/2018 2:07 PM EDT Temperature - - Respiratory Rate - - Oxygen Saturation 97% 09/29/2018 2:07 PM EDT Inhaled Oxygen Concentration - - Weight 118.8 kg (262 lb) 09/29/2018 2:07 PM EDT Height 165.1 cm (5' 5 ) 09/29/2018 2:07 PM EDT Body Mass Index 43.6 09/29/2018 2:07 PM EDT Plan of Treatment Health Maintenance Due Date Last Done Comments LIPID PANEL 1949 DEPRESSION SCREENING 1961 HEPATITIS C SCREENING 07/14/1967 COLOGUARD 1994 COLONOSCOPY 1994 COLORECTAL CANCER SCREENING 1994 FIT TEST 1994 FOBT 1994 SIGMOIDOSCOPY 1994 VIRTUAL COLONOSCOPY 1994 COVID-19 VACCINE (3 - 2023-2 5 season) 2023 03/09/2021, 01/24/2021 RSV VACCINE (1 - 1-dose 75+ series) 2024 Adult Td,Tdap Booster 01/05/2029 01/05/2019 , 12/30/2005 SMOKING STATUS SCREENING (On ce After 26 Yrs) Completed 09/29/2018 PNEUMOCOCCAL VACCINES (50+ years) Completed 01/05/2019, 12/19/2014 ZOSTER VACCINES Completed 05/15/2020, 11/13/2019, 10/09/2015 HEPATITIS A VACCINES Aged Out No long er eligible based on patient's age to complete this topic HIB VACCINES Aged Out No longer eligi ble based on patient's age to complete this topic MENINGOCOCCAL VACCINES (ACWY) Aged Out No longer eligible based on patient's age to complete this topic MENINGOCOCCAL VACCINES (B) Aged Out N o longer eligible based on patient's age to complete this topic Medical Devices Not on file Insurance [facility] H[facility] Care Teams [employer] Relationship Specialty Start Date End Date Pcp, Unknown PCP - General 10/22/21 Additional Source Comments The information contained in this document represents components of the legal health record. It is not the complete legal health record.[facility]
== END 2024-10-03 10:54 | disposition home or self-care (01) ==
LOC: HO.HMCFM 10:03
PROVIDERS: PCP Family Medicine; Visit Provider Nurse Practitioner Family
DX: M79.645 Pain in left finger(s) (principal)

== ENCOUNTER 2024-10-03 10:02 | Outpatient (REF) | payer OTHER, SELFPAY ==
--- NOTE | ~2024-10-03 | XR_ITS ---
EXAMINATION: XR FINGER, LEFT CLINICAL INFORMATION: M79.645 - Pain in left finger(s) COMPARISON: None available. TECHNIQUE: PA hand left second digit oblique and lateral views. FINDINGS: There is mild to moderate narrowing of the DIP joints and mild narrowing of PIP joints. There are no marginal ossified is. Degenerative cystic change is present in the distal ulnar aspect of scaphoid. XR/XR finger LT min 2V IMPRESSION: Mild degenerative changes. No acute abnormality. Electronically signed by: Jae oWrrell MD 10/03/2024 12:06 PM EDT
== END 2024-10-03 10:03 | disposition home or self-care (01) ==
LOC: HO.XRAY 10:02
PROVIDERS: Absent Provider Nurse Practitioner Family; PCP Family Medicine; Visit Provider Nurse Practitioner Family
DX: M79.645 Pain in left finger(s) (principal)
CPT/HCPCS: 73140

== ENCOUNTER → 2024-10-03 11:31 | Outpatient (BNV) | payer OTHER, SELFPAY | PROVIDERS: Absent Provider Nurse Practitioner Family; PCP Family Medicine; Visit Provider Radiology Diagnostic Radiology | DX: M19.042 Primary osteoarthritis, left hand (principal) | CPT/HCPCS: 73140 ==